=== PATIENT | female | born 1960 | race Caucasian/White ===

== ENCOUNTER → 2021-05-03 09:07 | Outpatient (BNVA) | payer MEDICAID, SELFPAY | PROVIDERS: PCP Internal Medicine Geriatric Medicine; Visit Provider Surgery Vascular Surgery ==

== ENCOUNTER 2021-05-08 09:59 | Outpatient (REF) | payer MEDICAID, SELFPAY ==
--- NOTE | ~2021-05-08 | US_ITS ---
EXAMINATION: NONINVASIVE ASSESSMENT OF THE ARTERIES OF BOTH LOWER EXTREMITIES WITH PVR EXAM AND BILATERAL LOWER EXTREMITY DUPLEX: CLINICAL INFORMATION: Claudication TECHNIQUE: Ankle pulse volume recordings, ankle pressure measurements and ankle brachial indices were obtained of the lower extremity arterial system bilaterally in addition to duplex Doppler techniques with wave form analysis and measurement of velocities in the common femoral, profunda femoral, superficial femoral, popliteal and tibial arteries. The study was performed only at rest. COMPARISON: None FINDINGS: a) AT REST: RIGHT LE. The right ankle-brachial index is: Inaudible/could not be obtained. 2. Right ankle pressure: Decreased 3. Right ankle PVR waveform: Dampened 4. Right direct duplex Doppler findings: There is evidence of atherosclerotic disease. The proximal and mid SFA is occluded. * Common femoral artery: 108 cm/s, Diastolic flow reversal: Yes * Superficial femoral artery distal): 108 cm/s, Diastolic flow reversal: No. Turbulent monophasic flow * Popliteal artery: 79 cm/s, Diastolic flow reversal: No. Turbulent monophasic flow. * Posterior tibial artery: 23 cm/s, Diastolic flow reversal: No. Turbulent monophasic flow. There is increased peak systolic velocity in the fundus measuring 397 cm/s. LEFT LE. The left ankle-brachial index is: Inaudible/could not be obtained. 2. Left ankle pressure: Decreased 3. Left ankle PVR waveform: Dampened 4. Left direct duplex Doppler findings: There is evidence of atherosclerotic disease. The proximal and mid SFA is occluded. * Common femoral artery: 80 cm/s, Diastolic flow reversal: No. Biphasic. * Superficial femoral artery ( distal): 22 cm/s, Diastolic flow reversal: No. Monophasic flow. * Popliteal artery: 55 cm/s, Diastolic flow reversal: No. Monophasic flow. * Posterior tibial artery: 33 cm/s, Diastolic flow reversal: No. Monophasic flow. There is increased peak systolic velocity in the profunda measuring 548 cm/s and turbulent monophasic flow. * US/US arterial duplex LE BI IMPRESSION: Right: Occluded right proximal and mid SFA. Reconstituted distal SFA. Patent posterior tibial and popliteal arteries with turbulent monophasic flow. ADEOLA could not be obtained. Increased peak systolic velocity in the PFA questionable for stenosis. Left: Occluded proximal and mid SFA. Reconstituted diseased distal SFA. Patent posterior tibial and popliteal arteries with monophasic flow. ADEOLA could not be obtained. Increased peak systolic velocity PFA questionable for stenosis.
== END 2021-05-08 10:00 | disposition home or self-care (01) ==
LOC: HO.US 09:59
PROVIDERS: Visit Provider Surgery Vascular Surgery
DX: I70.213 Atherosclerosis of native arteries of extremities with intermittent claudication, bilateral legs (principal); F17.200 Nicotine dependence, unspecified, uncomplicated; Z71.6 Tobacco abuse counseling
CPT/HCPCS: 93923; 93925; 99202

== ENCOUNTER → 2021-05-10 15:07 | Outpatient (BNVA) | payer MEDICAID, SELFPAY | PROVIDERS: Visit Provider Surgery Vascular Surgery | DX: I73.9 Peripheral vascular disease, unspecified (principal); F17.210 Nicotine dependence, cigarettes, uncomplicated | CPT/HCPCS: 99212 ==

== ENCOUNTER → 2021-05-16 07:28 | Day surgery (SDC) | payer MEDICAID, SELFPAY ==
--- NOTE | 2021-05-16 08:05 | PC.NURSE ---
Patient reported to per diem interpreter she drank full bottle of water around 0700, approx 8oz. Patient stated they told me I couldn't have any coffee but that water was okay . RN Antoinette Cervantes notified and told Dr Varela. Dr Varela to speak to patient at bedside.
[2021-05-16 08:06] VITALS: BMI 25.4
[2021-05-16 08:15] LABS: MANUAL DIFF FLAG NO
[2021-05-16 08:17] LABS: Basophils Percent Auto 0.4 % (0-2); Eosinophils Absolute Auto 0.1 X10*3/uL (0.0-0.4); Hemoglobin 12.6 g/dl (12.0-16.0); Imm Gran Abs Auto 0.04 X10*3/uL (0.00-0.03); Imm Gran Pct Auto 0.4 % (0.0-0.4); Lymphocytes Absolute Auto 3.3 X10*3/uL (1.2-4.9); Lymphocytes Percent Auto 34.1 % (20-40); Mean Corpuscular HGB Conc 32.3 g/dl (31.0-35.0); Mean Corpuscular Hemoglobin 28.4 pg (27.0-33.0); Monocytes Absolute Auto 0.6 X10*3/uL (0.1-1.2); Monocytes Percent Auto 5.7 % (2-11); Neutrophils Absolute Auto 5.6 X10*3/uL (2.0-8.3); Neutrophils Percent Auto 58.4 % (45-73); Platelet Count 265 X10*3/uL (160-400); Red Blood Count 4.43 X10*6/uL (4.20-5.50); Red Cell Distribution Width 13.6 % (11.0-16.0); White Blood Count 9.6 X10*3/uL (4.8-10.8)
[2021-05-16 08:40] LABS: Anion Gap 14 (12-20); Blood Urea Nitrogen 14 mg/dL (9-16); Calcium 9.2 mg/dL (8.4-10.2); Carbon Dioxide 23 mmol/L (22-29); Chloride 107 mmol/L (96-108); Creatinine Clr Calc Pharmacy 86.4; Estimated Glomerular Filt Rate > 60; Glucose Random 99 mg/dL (60-115); Potassium 3.7 mmol/L (3.3-5.1); Sodium 140 mmol/L (135-145)
[2021-05-16 08:53] LABS: INTERNATIONAL NORM RATIO 1.1 (0.9-1.1); Prothrombin Time 12.5 SEC (9.9-13.0)
[2021-05-16 08:56] LABS: Partial Thromboplastin Time 40.1 SEC (24.1-38.0)
--- NOTE | 2021-05-16 09:09 | PC.NURSE ---
Case cancelled by Dr Varela, patient informed at bedside with fat purification worker.
== END ==
PROVIDERS: Visit Provider Surgery Vascular Surgery
DX: I73.9 Peripheral vascular disease, unspecified (principal); Z53.8 Procedure and treatment not carried out for other reasons
CPT/HCPCS: 36415; 80048; 85025; 85610; 85730

== ENCOUNTER 2021-05-30 06:03 | Day surgery (SDC) | payer MEDICAID, SELFPAY ==
[2021-05-30] VITALS (10 sets, daily range): BP systolic 132–152; BP diastolic 49–83; PULSE 66–87; RESP 13–16; TEMP 36.1–36.6; O2SAT 96–99; BMI 25.4
[2021-05-30 06:42] LABS: MANUAL DIFF FLAG NO
[2021-05-30 06:45] LABS: Basophils Percent Auto 0.3 % (0-2); Eosinophils Absolute Auto 0.1 X10*3/uL (0.0-0.4); Eosinophils Percent Auto 0.9 % (0-4); Hematocrit 38.9 % (37-47); Hemoglobin 12.5 g/dl (12.0-16.0); Imm Gran Abs Auto 0.03 X10*3/uL (0.00-0.03); Imm Gran Pct Auto 0.3 % (0.0-0.4); Lymphocytes Absolute Auto 2.7 X10*3/uL (1.2-4.9); Lymphocytes Percent Auto 25.5 % (20-40); Mean Corpuscular HGB Conc 32.1 g/dl (31.0-35.0); Mean Corpuscular Hemoglobin 28.3 pg (27.0-33.0); Mean Corpuscular Volume 88.2 fL (80-98); Mean Platelet Volume 11.2 fL (9.4-12.3); Monocytes Absolute Auto 0.6 X10*3/uL (0.1-1.2); Monocytes Percent Auto 5.9 % (2-11); Neutrophils Absolute Auto 7.2 X10*3/uL (2.0-8.3); Neutrophils Percent Auto 67.1 % (45-73); Platelet Count 215 X10*3/uL (160-400); Red Blood Count 4.41 X10*6/uL (4.20-5.50); Red Cell Distribution Width 13.9 % (11.0-16.0); White Blood Count 10.7 X10*3/uL (4.8-10.8)
[2021-05-30 06:56] LABS: Prothrombin Time 11.6 SEC (9.9-13.0)
[2021-05-30 06:59] LABS: Partial Thromboplastin Time 31.2 SEC (24.1-38.0)
[2021-05-30 07:38] LABS: Anion Gap 17 (12-20); Blood Urea Nitrogen 12 mg/dL (9-16); Calcium 9.2 mg/dL (8.4-10.2); Carbon Dioxide 19 mmol/L (22-29); Chloride 108 mmol/L (96-108); Creatinine Clr Calc Pharmacy 83.6; Estimated Glomerular Filt Rate > 60; Glucose Random 92 mg/dL (60-115); Potassium 3.8 mmol/L (3.3-5.1); Sodium 140 mmol/L (135-145)
--- NOTE | 2021-05-30 08:55 | P.OP_ITS ---
Operative Note Operative Note Date of Service: 05/30/21 Narrative: Angiogram report from [facility] Preoperative diagnosis: Atherosclerosis of right lower extremity with activity limiting claudication Postoperative diagnosis: Same Procedure: 1. Ultrasound-guided leftcommon femoral access 2. Aortogram with bilateral lower extremity runoff Surgeon:Ernesto Varela M.D. Administration Professional:None Anesthesia: Local with moderate conscious sedation for a total of 28 minutes, performed by va Specimens:none Drains:none Estimated blood loss: Less than 10 ml Indications: 60-year-old female with a history of smoking who has severe activity limiting claudication. Upon ambulation of half a block she notes pain and the right lower extremity The patient has signed the informed consent after reviewing risks, complications, benefits, and alternatives previously discussed with the patient in my office. The patient was given the opportunity to ask any additional questions or voice any concerns. All questions were answered to the patient's satisfaction. Procedure in detail: Patient was brought to the angiography suite prior to which a time-out was called for patient identification and site verification. Bilateral groins were prepped and draped in the standard surgical fashion. Under ultrasound guidance left common femoral was punctured with micro puncture needle and wire. Subsequently a precision 4 Latvian sheath was then placed. [employer] wire was advanced to the level of the aorta. 4 Latvian Flush catheter was brought up and parked at the level of the renal arteries. Aortogram was then undertaken. Catheter was brought down to the level of the iliac bifurcation. Iliacs were subsequently imaged. Catheter was then brought in up and over to the right side common femoral. Runoff study was then undertaken. No intervention was indicated. Catheter was brought back to the left side and left lower extremity runoff was undertaken through the 4 Latvian sheath. At this point sheath was removed in 10 minutes of direct pressure was held. Patient tolerated the procedure well. Returned to recovery with stable vitals and no hematoma. Interpretation of films: 1. Ultrasound demonstrates appropriate femoral puncture. Image of which was saved. 2. Aortogram demonstrates appropriate caliber aorta. Minimal disease. Appropriate take-off of the renals. 3. Iliac images demonstrate normal caliber no significant stenosis 4. Right lower extremity demonstrated good flow through the common femoral which had significant calcific disease. Very prominent profunda femorals. Flush occlusion of SFA with reconstitution at the above knee popliteal. Three vessel runoff anterior tibial was tenuous. TP trunk had some mild stenosis. 5. Left lower extremity study was a mirror image. Good flow down through the common femoral into the profunda. Flush occlusion of SFA with reconstitution of the above knee popliteal. Three vessel runoff although the vessels were smaller in caliber. Conclusion: 1. Successful diagnostic angiogram. Patient will require fem-pop bypass above knee. Will discuss on follow-up in office. This note is constructed using voice recognition software. While every effort has been made to ensure accuracy, sql server architect errors may have been included. Thank you for allowing me to participate in the care of your patient. Yours sincerely, Ernesto Varela MD, FACS, R.P.V.I.
[2021-05-30] MEDS: iohexoL 300 MG/ML 100 ML INFUS..BTL IV (11:54)
[2021-05-30] MEDS: oxyCODONE HCl Immed Release 5 MG TABLET PO (11:55)
[2021-05-30] MEDS: Acetaminophen 325 MG TABLET 650 MG PO (11:55)
== END 2021-05-30 13:42 | disposition home or self-care (01) ==
PROVIDERS: Visit Provider Surgery Vascular Surgery
DX: I70.211 Atherosclerosis of native arteries of extremities with intermittent claudication, right leg (principal); M79.604 Pain in right leg; F39 Unspecified mood [affective] disorder; F19.20 Other psychoactive substance dependence, uncomplicated; F17.210 Nicotine dependence, cigarettes, uncomplicated
CPT/HCPCS: 36246; 36247; 36415; 75630; 76937; 80048; 85025; 85610; 85730; 99152; 99153; C1769; C1887; J2250; J3010; Q9967

== ENCOUNTER → 2021-06-05 15:40 | Outpatient (BNVA) | payer MEDICAID, SELFPAY | PROVIDERS: Visit Provider Surgery Vascular Surgery | DX: I73.9 Peripheral vascular disease, unspecified (principal) | CPT/HCPCS: 99212 ==

== ENCOUNTER → 2021-06-12 14:45 | Outpatient (BNVA) | payer MEDICAID, SELFPAY | PROVIDERS: PCP Internal Medicine Geriatric Medicine; Visit Provider Internal Medicine | DX: Z01.810 Encounter for preprocedural cardiovascular examination (principal); I73.9 Peripheral vascular disease, unspecified; I25.10 Atherosclerotic heart disease of native coronary artery without angina pectoris; F17.210 Nicotine dependence, cigarettes, uncomplicated; Z79.899 Other long term (current) drug therapy | CPT/HCPCS: 93005; 99202 ==

== ENCOUNTER → 2021-06-19 07:14 | Outpatient (REF) | payer MEDICAID, SELFPAY ==
--- NOTE | ~2021-06-19 | NM_ITS ---
Myocardial perfusion study Indication: Preoperative cardiovascular risk stratification Technique: The patient was brought in for a Lexiscan perfusion study on 06/19/2021. Patient performed low-level exercise and was injected 0.4 mg of Lexiscan intravenously. Within a minute of injection, 25 mCi of sestamibi was given intravenously. Images were obtained using the SPECT gamma camera interlaced with the gating device. Images were obtained in supine position. Resting perfusion study was performed on 06/20/2021. Patient was administered 25 mCi of sestamibi intravenously at rest. Images were then obtained in supine position. Images obtained with and without CT attenuation. Total DLP 83 mGy-cm. Images were processed with the software and compared side to side in short axis, horizontal long axis and vertical long axis views. Findings: The stress perfusion study showed nonattenuated images show moderately reduced uptake in the basal inferior wall of the LV myocardium. An abnormal perfused. Attenuation corrected images show moderately reduced uptake in the basal inferior wall of the LV myocardium is well.. The gated study shows normal LV systolic function with calculated LVEF of 58%. LV cavity is normal in size. The gated study shows reduced wall thickening and contraction of basal inferior segments. Resting study shows no change in perfusion pattern compared to stress perfusion study. Gating at rest reveals normal systolic wall motion with ejection fraction at greater than 60%. The findings are consistent with fixed basal inferior defect most suggestive nontransmural infarct. There is no reversible defect ischemia.. IN/IN cardiolite stress test Impression: 1. 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 Gated LVEF is 58% 3. Transient ischemic dilatation not present EKG is nondiagnostic for ischemia
--- NOTE | 2021-06-19 07:34 | CA_ITS ---
Transthoracic Echocardiogram Patient (Last, First, Middle): Elizabeth Mesa, Gender: Female Date of : 1960 Age: 61 Procedure Date: 06/19/2021 Procedure Type: Transthoracic Echocardiogram Location: OP Height: 157.48 cm Weight: 58.97 kg BSA: 1.59 m2 Heart Rate: bpm BP: 122 / 60 mmHg Dietary Assistant: COLLIN/ASAEL Referring MD: Kraig Templeton MD Symptoms: I25.10 - Atherosclerotic heart disease of [place] coronary... Study Quality: Good ECG Rhythm: Sinus Conclusions: - The left ventricular systolic function is low normal. The visually estimated ejection fraction is between 50-55%. - The inferoseptal wall and basal inferior segment are akinetic. - There is an interatrial septal aneurysm seen bowing to the right. - No obvious valvular pathology seen on this study. Findings Left Ventricle Normal left ventricular cavity size. There is normal left ventricular wall thickness. The left ventricular systolic function is low normal. The visually estimated ejection fraction is between 50-55%. E/E prime ratio is between 8 and 15 consistent with indeterminate filling pressures. Evidence suggests grade I (mild) diastolic dysfunction. Wall Motion Rest Echo Findings The inferoseptal wall and basal inferior segment are akinetic. Right Ventricle Normal right ventricular cavity size and systolic function. Atria Both atria are normal in size. There is an interatrial septal aneurysm seen bowing to the right. Interatrial shunt cannot be excluded. Aortic Valve There is a normal trileaflet aortic valve. There is no aortic valve stenosis. There is no aortic valve regurgitation. Mitral Valve The mitral valve appears normal. There is trace mitral valve regurgitation. There is no mitral valve stenosis. Pulmonic Valve The pulmonic valve was not well visualized. Tricuspid Valve Normal tricuspid valve structure. There is no tricuspid valve regurgitation. The pulmonary artery systolic pressure is normal. Great Vessels The aortic annulus, sinuses of valsalva, and asc aorta are normal in size. Venous The inferior vena cava is normal in size and collapses greater than 50% with inspiration. Pericardium/Pleural There is no evidence of pericardial effusion. Prior Study Comparison No prior study available for comparison. Recommendations, Care & Conclusions No obvious valvular pathology seen on this study. Measurements 2D Linear Measurements IVSd: 0.83 0.6-0.9/0.6-1.0 cm LVIDd: 4.84 3.9-5.3/4.2-5.9 cm LVIDd Index: 3.04 2.4-3.2/2.2-3.1 cm/m2 LVIDs: 3.28 2.0-3.6 cm LVPWd: 0.92 0.7-1.1 cm Ao Root: 3.00 2.1-3.5 cm LA Diam: 3.80 2.7-3.8/3.0-4.0 cm LAIDs Index: 2.39 1.5-2.3 cm/m2 LV Mass: 180.40 67-162/88-224 g LV Mass Index: 113.46 43-95/49-115 g/m2 LVOT Diam: 2.10 3.0+(-)1.3 cm Mitral Valve MV Pk E: 0.91 MV PK A: 0.97 MV Decel Time: 90.00 E/A: 0.90 E'Lateral: 7.94 E'Medial: 4.68 E/E' Med: 19.40 E/E' Lat: 11.40 PHT: 26.00 MVA PHT: 8.46 Decel [place]: 10.05 Aortic Valve AoV Pk Neri: 1.19 AoV Mn Neri: 0.82 AoV VTI: 0.25 AoV Pk Grad: 6.00 Aov Mn Grad: 3.00 KYRA Cont.VTI: 3.07 LVOT LVOT Pk Neri: 1.00 LVOT Mn Neri: 0.66 LVOT VTI: 0.22 LVOT Pk Grad: 4.00 LVOT Mn Grad: 2.00 LVOT Diam: 2.10 LVOT Area: 3.46 Diastolic Function MV Pk E: 0.91 MV Pk A: 0.97 E/A: 0.90 E'Medial: 4.68 E/E' Med: 19.40 E' Laterial: 7.94 E/E' Lat: 11.40 Right Ventricle TAPSE (mm): 24.00 TVS' Neri: 12.00 Great Vessels Aorta Ao Root-2D: 3.00 2.0-3.7 cm Ao Asc: 3.10 2.1-3.4 cm Updated in Other Vendor System with Status of Final Kraig Templeton MD electronically signed on 06/19/2021 12:14:33 PM with status of Final
--- NOTE | 2021-06-19 10:29 | CA_ITS ---
Acquisition Time: 2021-06-19 08:52:09 Total Exercise Time: 00:02:00 Test Indications: Z01.810 - Encounter for preproc Medications: Protocol: LEXISCAN Max HR: 120 BPM 74% of Pred: 161 BPM Max BP: 124/080 mmHG Max Work Load: 1.0 METS Pharmacological stress test with Lexiscan njection while sitting and kicking her legs, without anginal symptoms, without arrythmia, with normotensive response to injection, with nondiagnostic EKG for ischemia. In recovery there were asymptomatic mildly dowsloping STs in V4-V6, which were different from baseline, that was treated with Aminophylline 75mg IVP to reverse Lexiscan with improvement. Nuclear images pending. Test reviewed with Dr Templeton. Referred By: Kraig Templeton Overread By: ISAIAH SANZ
== END ==
LOC: HO.CARD 07:14
PROVIDERS: Visit Provider Internal Medicine
DX: Z01.810 Encounter for preprocedural cardiovascular examination (principal); I25.10 Atherosclerotic heart disease of native coronary artery without angina pectoris
CPT/HCPCS: 78452; 93017; 93306; A9500; J0280; J2785

== ENCOUNTER → 2021-06-21 14:48 | Outpatient (BNVA) | payer MEDICAID, SELFPAY | PROVIDERS: Visit Provider Internal Medicine ==

== ENCOUNTER 2021-06-25 06:20 | Inpatient (IN) | payer MEDICAID, SELFPAY ==
--- NOTE | 2021-06-22 11:51 | P.CONAN_ITS ---
Documented by User: Martha Patel NP 06/22/21 12:45 HPI - Anesthesia Eval Consult details Narrative: 61yo F for Femoral Popliteal Bypass Graft Smoker ? substance abuse PMF Active Problems Active Problems: All Active Problems (Updated 06/21/21 @ 15:06 by Kraig biswas MD) Atherosclerotic cardiovascular disease (Acute) Smoking (Acute) Preoperative cardiovascular examination (Acute) PAD (peripheral artery disease) (Acute) Past Medical History Medical History (Updated 06/22/21 @ 12:35 by Chandrika Carpenter, RN) Asthma Atherosclerotic cardiovascular disease Claudication Mood disorder PAD (peripheral artery disease) Smoker Substance dependence Family History Family History Father Unknown family medical history Mother Unknown family medical history Family history of problems with anesthesia: No Surgical History Surgical History (Updated 06/22/21 @ 12:14 by Chandrika Carpenter RN) Hx of section No pertinent past surgical history History of Problems with Anesthesia: No Social History Social History Are you a primary customer care voice consultant to a significant other at home: No Do you presently have visiting nurse or other home services: No Patient Tobacco Use Status: Current everyday Tobacco user Tobacco use type: Cigarette Cigarette Packs Per Day: 0.35 Cigarettes Per Day: 7.0 Years Smoked: 38 Smoked in Last 30 Days: Yes Patient Interested in Nicotine Replacement: Yes Patient Given Instructions on How to Stop Smoking: Yes Date Education Initiated: 06/22/21 Second Hand Smoke Exposure: Yes Use of substances other than those prescribed or required for medical reasons: No Have you been hit, kicked, punched, or otherwise hurt by someone within the past year? If so, by whom?: No Are you DNR?: No Advance Directives: No Advance Directives Information Provided: No Advance Directives on File: No Recently lost weight without trying: No Eating poorly because of decreased appetite: No Nutrition Risks: No Nutritional Risk Patient : No : No Narrative Narrative: No recent illness. No CP/SOB. Activity limited by PAD Meds Allergies Allergy/AdvReac Type Severity Reaction Status Date / Time aspirin [ASPIRIN] Allergy Unknown Gastrointestinal Verified 06/22/21 12:15 Upset Home Medications Medication Instructions Recorded Confirmed Last Taken Type atorvastatin 20 mg tablet 20 mg PO DAILY 05/03/21 06/22/21 Unknown History blood pressure monitor (Blood #1 ea 05/03/21 06/21/21 Unknown History Pressure Kit) cyclobenzaprine 10 mg tablet 10 mg PO TID 05/03/21 06/22/21 Unknown History inhalational spacing device #1 ea 05/03/21 06/21/21 Unknown History (Aerochamber Mini) mirtazapine 7.5 mg tablet 7.5 mg PO BEDTIME 05/03/21 06/22/21 Unknown History nabumetone 750 mg tablet 750 mg PO BID 05/03/21 06/22/21 Unknown History Exam Exam Date and Time: June 22, 2021 1151 Pertinent Lab Results Pertinent Lab Results: Laboratory Tests 05/30/21 05/30/21 06:38 06:38 WBC 10.7 Hgb 12.5 Hct 38.9 Plt Count 215 Sodium 140 Potassium 3.8 Chloride 108 Carbon Dioxide 19 L BUN 12 Creatinine 0.64 Narrative Narrative: EKG 05/2021 sinus rhythm at 87/Min; old inferior infarct; cannot exclude old lateral infarct Echocardiogram with low normal LVEF, 50-55%; inferoseptal and basal inferior akinesis suggesting prior infarction.? There was also interatrial septal aneurysm.? Myocardial perfusion imaging study shows a nontransmural infarct of the basal inferior wall, but no ischemia.? Airway Mallampati Class: II TM Dist: >3cm Neck ROM: Full Adult Head Mouth w/Numbe Teeth: 1. Loose Loose/Missing/Broken Teeth: Yes Heart: RRR Lungs: CTAB Assessment and Plan Assessment Anesthesia Assessment: Anesthesia Plan Discussed, Smoking Cess. Discussed and PAT Visit Final Anesthetic Review Family History of Problems with Anesthesia: No History of Problems with Anesthesia: No Documented by User: Alee Costello MD 06/25/21 07:02 [facility] Past Medical History Medical History (Updated 06/22/21 @ 12:35 by Chandrika Carpenter RN) Asthma Atherosclerotic cardiovascular disease Claudication Mood disorder PAD (peripheral artery disease) Smoker Substance dependence Family History Family History Father Unknown family medical history Mother Unknown family medical history Surgical History Surgical History (Updated 06/22/21 @ 12:14 by Chandrika Carpenter RN) Hx of section No pertinent past surgical history Social History Social History Are you a primary customer care voice consultant to a significant other at home: No Do you presently have visiting nurse or other home services: No Patient Tobacco Use Status: Current everyday Tobacco user Tobacco use type: Cigarette Cigarette Packs Per Day: 0.35 Cigarettes Per Day: 7.0 Years Smoked: 38 Smoked in Last 30 Days: Yes Patient Interested in Nicotine Replacement: Yes Patient Given Instructions on How to Stop Smoking: Yes Date Education Initiated: 06/22/21 Second Hand Smoke Exposure: Yes Use of substances other than those prescribed or required for medical reasons: No Have you been hit, kicked, punched, or otherwise hurt by someone within the past year? If so, by whom?: No Are you DNR?: No Advance Directives: No Advance Directives Information Provided: No Advance Directives on File: No Recently lost weight without trying: No Eating poorly because of decreased appetite: No Nutrition Risks: No Nutritional Risk Patient : No : No Meds Allergies Allergy/AdvReac Type Severity Reaction Status Date / Time aspirin [ASPIRIN] Allergy Unknown Gastrointestinal Verified 06/22/21 12:15 Upset Home Medications Medication Instructions Recorded Confirmed Last Taken Type atorvastatin 20 mg tablet 20 mg PO DAILY 05/03/21 06/22/21 Unknown History blood pressure monitor (Blood #1 ea 05/03/21 06/21/21 Unknown History Pressure Kit) cyclobenzaprine 10 mg tablet 10 mg PO TID 05/03/21 06/22/21 Unknown History inhalational spacing device #1 ramiro 05/03/21 06/21/21 Unknown History (Aerochamber Mini) mirtazapine 7.5 mg tablet 7.5 mg PO BEDTIME 05/03/21 06/22/21 Unknown History nabumetone 750 mg tablet 750 mg PO BID 05/03/21 06/22/21 Unknown History Exam Airway Mallampati Class: II (Edentuous on top) Adult Head Mouth w/Numbe Teeth: 1. Loose Assessment and Plan Final Anesthetic Review NPO: Yes ASA Class: III Final Preanesthetic Review: No Changes in Pt Med Stat, Meds/Allgs Chart Reviewed and Consent Obtained/Reviewed Patient Risk: Intermediate Procedure Risk: Intermediate Anesthetic Plan Anesthetic Plan: GA Disposition: Standard PACU
[2021-06-22 12:17] VITALS: BMI 25.0
[2021-06-22 12:26] VITALS: BP 146/80; PULSE 91; RESP 20
[2021-06-22 14:27] LABS: Hematocrit 39.6 % (37-47); Hemoglobin 12.7 g/dl (12.0-16.0); Mean Corpuscular HGB Conc 32.1 g/dl (31.0-35.0); Mean Corpuscular Hemoglobin 28.2 pg (27.0-33.0); Mean Corpuscular Volume 87.8 fL (80-98); Platelet Count 234 X10*3/uL (160-400); Red Blood Count 4.51 X10*6/uL (4.20-5.50); Red Cell Distribution Width 13.8 % (11.0-16.0); White Blood Count 7.4 X10*3/uL (4.8-10.8)
[2021-06-22 14:31] LABS: Prothrombin Time 11.7 SEC (9.9-13.0)
[2021-06-22 14:34] LABS: Partial Thromboplastin Time 37.9 SEC (24.1-38.0)
[2021-06-22 14:53] LABS: Anion Gap 16 (12-20); Blood Urea Nitrogen 13 mg/dL (9-16); Calcium 9.7 mg/dL (8.4-10.2); Carbon Dioxide 25 mmol/L (22-29); Chloride 107 mmol/L (96-108); Creatinine Clr Calc Pharmacy 84.7; Estimated Glomerular Filt Rate > 60; Glucose Random 90 mg/dL (60-115); Sodium 143 mmol/L (135-145)
[2021-06-25] VITALS (20 sets, daily range): BP systolic 106–136; BP diastolic 56–76; PULSE 70–104; RESP 14–20; TEMP 36.1–36.8; O2SAT 97–100
[2021-06-25 06:59] LABS: COVID-19 Test Negative (Negative)
[2021-06-25] MEDS: Lactated Ringers 1,000 ML 50 ML IVCONT (07:15)
--- NOTE | 2021-06-25 08:01 | MHC.SHP ---
Pre-Procedural Eval Section A Date of Service: 06/25/21 The patient is an INPATIENT: No The History & Physical has been completed within 30 days and I have reviewed it.: Yes Section B Chief Complaint: Post op Allergies: Allergies Allergy/AdvReac Type Severity Reaction Status Date / Time aspirin [ASPIRIN] Allergy Unknown Gastrointestinal Verified 06/22/21 12:15 Upset Plan I have reviewed the history and physical and performed a pertinent physical examination on my patient. No changes have occurred unless specified.
--- NOTE | 2021-06-25 10:49 | W.PM.OPN ---
Operative Note Operative Note Date of Service: 06/25/21 Narrative: Operative note by [facility] Preoperative diagnosis: Atheroscleroses with a right lower extremity rest pain Postoperative diagnosis: Same Procedure:1. Right femoral to popliteal bypass 2. Femoral endarterectomy 3. Remote endarterectomy of profundus femoris Surgeon:Ernesto Varela M.D. Aerospace Technician: Dr. Gomez Anesthesia: General Specimens: 1 Drains: 0 Estimated blood loss: 150 mL Indications: 61-year-old smoker with right lower extremity rest pain had a preprocedure angiogram. Demonstrated total occlusion of SFA. Now presents for right side femoral to popliteal bypass. patient has signed the informed consent after reviewing risks, complications, benefits, and alternatives previously discussed with the patient in my office with her son at bedside in the office The patient was given the opportunity to ask any additional questions or voice any concerns. All questions were answered to the patient's satisfaction. Side Hemmer was present Procedure in detail: Patient was brought to the operating room prior to which a time-out was called for patient identification and site verification right lower extremity was prepped and draped in standard surgical fashion. Incision was carried out in a longitudinal manner over the common femoral artery. We were easily able to dissect out the common femoral artery and dissected up to the inguinal canal. This was isolated with a silastic loop. In a similar fashion we were able to isolate out the profundus and SFA. We created a 2nd incision just above the patella on the medial aspect of the thigh. We were able to dissect out to the 2 muscle heads and with Doppler guidance we were easily able to find the popliteal artery. In a similar manner this was isolated out with silastic loops as well. Once this was accomplished we passed a aortic clamp and use that as a tunneler and passed a umbilical tape through that tunnel. From the femoral incision to the above knee popliteal incision. At this time 5000 units of systemic heparin was administered. After 5 minutes of circulation time we turned our attention to the distal anastomosis 1st we created an arteriotomy after isolating the popliteal artery. This was widened with Govea scissor. We then circumferentially anastomosed the graft which was a Moberly Propaten 6 mm x 50 cm graft a CV6 Moberly suture. Once this was accomplished we flushed through the graft. We then tunnel the graft to the femoral site. The then trimmed the graft down to the appropriate size. Once this was accomplished we then created an arteriotomy on the common femoral all the way down to overlying the profundus femorals. There was a significant amount of atherosclerotic plaque that had to be removed in order to get a clear channel event to the profundus femorals. We performed a common femoral endarterectomy going down on to the SFA. In addition we had to perform remote endarterectomy of the profundus femorals. Once all this plaque material was removed clear surface was achieved. It was our irrigated out thoroughly. We then anastomosed the graft in a circumferential manner once again with a [place]oberly CV6 suture. We flushed prior to closure. Once this was accomplished there was several sites that had to be individually sutured to obtain hemostasis with a Prolene 6 0. Once this was accomplished adequate hemostasis was achieved. Tisseel sealant was placed. Deep layer was reapproximated using 2 0 Polysorb superficial layer with 3-0 poly Sorb finally skin was closed with skin clips. At the end of the case sponge instrument counts were correct. Patient tolerated the procedure well. Returned to recovery with stable vitals and a palpable dorsalis pedis pulse. This note is constructed using voice recognition software. While every effort has been made to ensure accuracy, executive director global brand marketing errors may have been included. Thank you for allowing me to participate in the care of your patient. Yours sincerely, Ernesto Varela MD, FACS, R.P.V.I.
--- NOTE | 2021-06-25 14:24 | PC.NURSE ---
Addendum entered by Hernando Bee RN 06/25/21 15:39: MD TRAVIS notified and checked out hematoma. No new orders at this time. Original Note: Pt arrived to unit 1400 denies pain. Foam dressings in place right groin femoral entry with scant sanguineous drainage marked, bruise noted distal with hematoma formation pulses palp, denies pain, leg temp normal. Medial foam inner right superior knee dry intact. aware hematoma MARIA DOLORES. VSS.
--- NOTE | 2021-06-25 14:40 | P.HPCC_ITS ---
History of Present Illness Date of Service: 06/25/21 Chief Complaint: Status post fem-pop bypass 61-year-old lady with underlying history of peripheral artery disease symptomatic with leg claudication postop day 0 after elective right fem-pop bypass being monitored in the intensive care unit. Review of Systems Constitutional: Constitutional: Denies daytime sleepiness, Denies excessive sweating, Denies fatigue, Denies fever(s), Denies lethargy, Denies malaise, Denies night sweats, Denies snoring and Denies weight loss Eyes: Eyes: Denies blurry vision and Denies itchy eyes ENT: Denies nasal congestion, Denies post nasal drip, Denies sinus pain, Denies sinus pressure and Denies other ( Thrush) Cardiovascular: Cardiovascular: Denies chest pain, Denies pedal edema, Denies dyspnea, Denies orthopnea and Denies paroxysmal nocturnal dyspnea Respiratory: Respiratory: Denies cough, Denies hemoptysis, Denies excessive phlegm production, Denies dyspnea, Denies snoring and Denies wheezing Gastrointestinal: Gastrointestinal: Denies abdominal pain and Denies heartburn Musculoskeletal: Musculoskeletal: Denies myalgias, Denies arthralgias, Denies joint swelling and Reports other (Positive for bilateral leg pain) Integumentary/Breasts: Skin/Breast: Denies rash Neurologic: Denies memory loss and Denies seizure-like activity Psychiatric: Psychiatric: Denies abnormal sleep pattern, Denies anxiety and Denies memory loss Endocrine: Endocrine: Denies excessive sweating, Denies fatigue and Denies heat intolerance Hematologic/Lymphatic: Hematologic/Lymphatic: Denies easy bruising Allergic/Immunologic: Allergic/Immunologic: Denies itchy eyes, Denies seasonal rhinorrhea and Denies wheezing PMFSH Past Medical History Medical History (Updated 06/25/21 @ 14:45 by Baron Tristan MD) Asthma Atherosclerotic cardiovascular disease Claudication Mood disorder PAD (peripheral artery disease) Smoker Substance dependence Family History Family History Father Unknown family medical history Mother Unknown family medical history Surgical History Surgical History (Updated 06/22/21 @ 12:14 by Chandrika Carpenter RN) Hx of section No pertinent past surgical history Social History Social History Are you a primary nanny caregiver to a significant other at home: No Do you presently have visiting nurse or other home services: No Patient Tobacco Use Status: Current everyday Tobacco user Tobacco use type: Cigarette Cigarette Packs Per Day: 0.35 Cigarettes Per Day: 7.0 Years Smoked: 38 Second Hand Smoke Exposure: Yes Meds Allergies Allergy/AdvReac Type Severity Reaction Status Date / Time aspirin [ASPIRIN] Allergy Unknown Gastrointestinal Verified 06/22/21 12:15 Upset Active Medications: Current Medications Generic Name Dose Route Start Last Admin Trade Name Freq PRN Reason Stop Dose Admin Acetaminophen 650 mg 06/25/21 10:46 Acetaminophen 325 Mg Tablet PO Q6H PRN Pain, Mild (Pain Scale 1-3) Atorvastatin Calcium 20 mg 06/26/21 09:00 Atorvastatin Calcium 20 Mg Tablet PO DAILY [facility] Cyclobenzaprine HCl 10 mg 06/25/21 15:00 Cyclobenzaprine Hcl 10 Mg Tablet PO TID [facility] Lactated Ringer's 1,000 mls @ 150 mls/hr 06/25/21 14:45 Lr IVCONT .Q6H40M [facility] Mirtazapine 7.5 mg 06/25/21 21:00 Mirtazapine 7.5 Mg Tablet PO BEDTIME [facility] Morphine Sulfate 2 mg 06/25/21 10:46 Morphine Sulfate 2 Mg/Ml Cartridge IVPUSH Q4H PRN Pain, Severe (Pain Scale 7-10) Protocol Oxycodone HCl 5 mg 06/25/21 10:46 Oxycodone Hcl Immed Release 5 Mg Tablet PO Q4H PRN Pain, Moderate (Pain Scale 4-6 Sodium Chloride 3 ml 06/25/21 16:00 0.9 % Sodium Chloride Flush 3 Ml Syringe IVFLUSH QSHIFT [facility] Home Medications Medication Instructions Recorded Confirmed Last Taken Type atorvastatin 20 mg tablet 20 mg PO DAILY 05/03/21 06/22/21 Unknown History blood pressure monitor (Blood #1 ea 05/03/21 06/21/21 Unknown History Pressure Kit) cyclobenzaprine 10 mg tablet 10 mg PO TID 05/03/21 06/22/21 Unknown History inhalational spacing device #1 ea 05/03/21 06/21/21 Unknown History (Aerochamber Mini) mirtazapine 7.5 mg tablet 7.5 mg PO BEDTIME 05/03/21 06/22/21 Unknown History nabumetone 750 mg tablet 750 mg PO BID 05/03/21 06/22/21 Unknown History Physical Exam Vital Signs: Vital Signs: Last Vital Signs Temp 97.8 F 06/25/21 14:00 Pulse 76 06/25/21 14:00 Resp 20 06/25/21 14:00 BP 114/68 06/25/21 14:00 Pulse Ox 98 06/25/21 14:00 Body Mass Index 25.0 Const: General: no acute distress, alert and awake Eyes: Sclerae: sclerae normal EOM: EOMs intact bilaterally Neck: Neck: Yes no lymphadenopathy, Yes trachea midline and Yes supple Resp: Effort & Inspection: normal respiratory effort and no respiratory distress Auscultation: clear to auscultation bilaterally Cardio: Rate: regular rate Rhythm: regular rhythm Heart sounds: no leal ps, no murmurs and no rubs GI: Palpation (GI): Soft to palpation and Other GI palpation findings present ( Nontender) Auscultation: normal bowel sounds Extrem: General: Yes no pedal edema, No clubbing, No cyanosis and Yes other (Right femoral surgical site with dressing and small hematoma just distal ) Results Labs CBC and Chem 7: 06/22/21 13:10 06/22/21 13:10 Labs: Laboratory Results - last 24 hr 06/25/21 06:27 COVID-19 ([facility]) Negative COVID-19 Clin Com See Note Assessment and Plan (1) PAD (peripheral artery disease): Status: Acute Assessment: 61-year-old lady with underlying history of morbid disorder and peripheral arterial disease now postop day 0 after an elective right fem-pop bypass being monitored in the intensive care unit Plan: Neuro: No acute issues. Cardiovascular: Postop day 0 after right fem-pop bypass for symptomatic peripheral artery disease. Vascular surgery service care appreciated. Maintain systolic blood pressure under 160. Pulmonary: No acute issues. Renal: No acute issues. Endo: No acute issues. GI: No acute issues. ID: No acute issues Heme/Onc: No acute issues. Psych: Underlying history mood disorder, continue mirtazapine. Miscellaneous: No acute issues. Prophylaxis: Per vascular surgery Diet: Regular (2) Atherosclerotic cardiovascular disease: Status: Acute (3) Mood disorder: Status: Acute (4) Substance dependence: Status: Acute
[2021-06-25] MEDS: ceFAZolin Sodium/Dextrose,Iso 2 GM/50 ML PIGGYBACK IV (14:51)
[2021-06-25] MEDS: Lactated Ringers 1,000 ML 150 ML IVCONT ×2 (14:53→22:12)
[2021-06-25] MEDS: Cyclobenzaprine HCl 10 MG TABLET PO ×2 (14:56→20:53)
[2021-06-25] MEDS: oxyCODONE HCl Immed Release 5 MG TABLET PO ×2 (16:14→20:54)
[2021-06-25 16:15] LABS: MANUAL DIFF FLAG NO
[2021-06-25 16:41] LABS: Basophils Percent Auto 0.1 % (0-2); Hemoglobin 12.4 g/dl (12.0-16.0); Imm Gran Abs Auto 0.07 X10*3/uL (0.00-0.03); Imm Gran Pct Auto 0.7 % (0.0-0.4); Lymphocytes Absolute Auto 0.9 X10*3/uL (1.2-4.9); Lymphocytes Percent Auto 9.5 % (20-40); Mean Corpuscular HGB Conc 33.5 g/dl (31.0-35.0); Mean Corpuscular Hemoglobin 28.2 pg (27.0-33.0); Mean Corpuscular Volume 84.1 fL (80-98); Mean Platelet Volume 12.9 fL (9.4-12.3); Monocytes Absolute Auto 0.2 X10*3/uL (0.1-1.2); Monocytes Percent Auto 1.9 % (2-11); Neutrophils Absolute Auto 8.6 X10*3/uL (2.0-8.3); Neutrophils Percent Auto 87.8 % (45-73); Platelet Count 181 X10*3/uL (160-400); Red Cell Distribution Width 13.6 % (11.0-16.0); White Blood Count 9.8 X10*3/uL (4.8-10.8)
[2021-06-25] MEDS: Mirtazapine 7.5 MG TABLET PO (20:54)
[2021-06-25] MEDS: Morphine Sulfate 2 MG/ML CARTRIDGE IVPUSH (23:36)
[2021-06-26] VITALS (7 sets, daily range): BP systolic 109–131; BP diastolic 54–75; PULSE 71–91; RESP 18–20; TEMP 36–37.1; O2SAT 95–99; BMI 27.9
[2021-06-26] MEDS: Lactated Ringers 1,000 ML 150 ML IVCONT (04:55)
[2021-06-26] MEDS: oxyCODONE HCl Immed Release 5 MG TABLET PO ×3 (05:02→23:24)
[2021-06-26 07:00] LABS: MANUAL DIFF FLAG NO
[2021-06-26 07:08] LABS: Basophils Percent Auto 0.1 % (0-2); Hematocrit 31.2 % (37-47); Hemoglobin 10.1 g/dl (12.0-16.0); Imm Gran Abs Auto 0.05 X10*3/uL (0.00-0.03); Imm Gran Pct Auto 0.5 % (0.0-0.4); Lymphocytes Percent Auto 18.6 % (20-40); Mean Corpuscular HGB Conc 32.4 g/dl (31.0-35.0); Mean Corpuscular Volume 86.4 fL (80-98); Mean Platelet Volume 12.1 fL (9.4-12.3); Monocytes Percent Auto 9.1 % (2-11); Neutrophils Absolute Auto 7.6 X10*3/uL (2.0-8.3); Neutrophils Percent Auto 71.7 % (45-73); Platelet Count 170 X10*3/uL (160-400); Red Blood Count 3.61 X10*6/uL (4.20-5.50); Red Cell Distribution Width 13.9 % (11.0-16.0); White Blood Count 10.6 X10*3/uL (4.8-10.8)
[2021-06-26 07:58] LABS: Anion Gap 11 (12-20); Blood Urea Nitrogen 10 mg/dL (9-16); Calcium 8.7 mg/dL (8.4-10.2); Carbon Dioxide 27 mmol/L (22-29); Chloride 107 mmol/L (96-108); Creatinine Clr Calc Pharmacy 92.1; Estimated Glomerular Filt Rate > 60; Glucose Random 138 mg/dL (60-115); Potassium 4.5 mmol/L (3.3-5.1); Sodium 140 mmol/L (135-145)
--- NOTE | 2021-06-26 08:47 | HO.VASCPN ---
Subjective Subjective Date of Service: 06/26/21 Patient reports: no new complaints, feels better and pain is less Interval history: 61-year-old female postop day 1 status post fem-pop bypass. Doing well overnight. Transferred from ICU to floor due to bed situation. Pain reasonably well controlled. No issues overnight. Physical Exam Vital Signs: Vital Signs: Last Vital Signs Temp 98.2 F 06/26/21 05:06 Pulse 71 06/26/21 05:06 Resp 18 06/26/21 05:06 BP 111/60 06/26/21 05:06 Pulse Ox 98 06/26/21 05:06 Body Mass Index 27.9 Const: General: cooperative, healthy appearing and no acute distress Orientation/consciousness: oriented to person, oriented to place and oriented to time HENMT: Head: Yes normal to inspection Neck: Carotids: no bruits Chest: Chest palpation & inspection: normal inspection of the chest Resp: Effort & Inspection: normal respiratory effort and able to speak in complete sentences Auscultation: clear to auscultation bilaterally Cardio: Rate: regular rate Heart sounds: S1 normal heart sound present and S2 normal heart sound present Peripheral pulses: dorsalis pedis present (Right side triphasic signal) GI: Inspection: Yes normal to inspection Skin: Other: Small right groin hematoma General skin exam: no rashes or lesions noted Wounds: no wounds Neuro: General: oriented to person, oriented to place, oriented to time and CN's II-XI intact bilaterally Extrem: General: Yes normal to inspection, Yes full ROM and Yes no clubbing, cyanosis or edema Psych: Appearance: grossly normal and well kempt Speech and movement: Normal speech and movement present Affect: normal affect Progress Note: A&P Assessment and plan (1) PAD (peripheral artery disease): Status: Acute Assessment and Plan: Doing well postop day 1. Will DC Riley. Continue bedrest for today. Will start ambulation and physical therapy tomorrow if stable. Will check CBC again tomorrow. Consult Medicine from medical management. Fall Risk Details Current Medications: Current Medications Generic Name Dose Route Start Last Admin Trade Name Freq PRN Reason Stop Dose Admin Acetaminophen 650 mg 06/25/21 10:46 Acetaminophen 325 Mg Tablet PO Q6H PRN Pain, Mild (Pain Scale 1-3) Atorvastatin Calcium 20 mg 06/26/21 21:00 Atorvastatin Calcium 20 Mg Tablet PO BEDTIME [facility] Cyclobenzaprine HCl 10 mg 06/25/21 15:00 06/25/21 20:53 Cyclobenzaprine Hcl 10 Mg Tablet PO 10 mg TID [facility] Administration Lactated Ringer's 1,000 mls @ 100 mls/hr 06/25/21 14:45 06/26/21 04:55 Lr IVCONT 150 mls/hr .Q10H [facility] Administration Mirtazapine 7.5 mg 06/25/21 21:00 06/25/21 20:54 Mirtazapine 7.5 Mg Tablet PO 7.5 mg BEDTIME [facility] Administration Morphine Sulfate 2 mg 06/25/21 10:46 06/25/21 23:36 Morphine Sulfate 2 Mg/Ml Cartridge IVPUSH 2 mg Q4H PRN Administration Pain, Severe (Pain Scale 7-10) Protocol Oxycodone HCl 5 mg 06/25/21 10:46 06/26/21 05:02 Oxycodone Hcl Immed Release 5 Mg Tablet PO 5 mg Q4H PRN Administration Pain, Moderate (Pain Scale 4-6 Sodium Chloride 3 ml 06/25/21 16:00 06/25/21 23:30 0.9 % Sodium Chloride Flush 3 Ml Syringe IVFLUSH Not Given QSHIFT [facility] Time Spent With Patient Time: Total time spent is greater than 50% in coordination of care (as documented) at patient's floor/unit and/or counseling patient: Time with patient: 25 - 35 minutes No Severe Sepsis: No Severe Sepsis Procedures Date of Service Date of Service: 06/26/21 Quality Stroke Does the patient have a stroke diagnosis?: No VTE Prior VTE?: No VTE Risk Level:: Surgical - moderate VTE Device Contraindication: N/A - Device Ordered VTE Drug Contraindication: N/A - Med Ordered
[2021-06-26] MEDS: Cyclobenzaprine HCl 10 MG TABLET PO ×3 (09:25→20:09)
[2021-06-26] MEDS: Heparin Sodium,Porcine 5,000 UNIT/ML VIAL 5000 UNIT SUBCUT ×2 (09:26→17:03)
--- NOTE | 2021-06-26 10:09 | PC.NURSE ---
Patient's cordova removed at 0930, patient tolerated procedure well, patient was advised of the bedrest order and need of bedpan use. 550ml of yellow urine drained
--- NOTE | 2021-06-26 10:37 | MHC.CM.PN ---
CM MET WITH PT WITH THE ASSISTANCE OF [facility]. PT REPORTS SHE LIVES AT HOME WITH HER SON WHO PROVIDES ASSISTANCE TO HER PRN. PT DENIES HAVING ANY IN HOME SERVICES BUT SAYS SHE IS WORKING ON GETTING [employer] HOURS FOR HER SON. PT REPORTS SHE GOES TO [facility] FOR PRIMARY CARE BUT DOES NOT KNOW THE PROVIDERS NAME. PT COMPLETED A HCP TODAY NAMING HER SON, BARON AND DAUGHTER, SUMAYA, HER PRIMARY AND ALTERNATE AGENTS RESPECTIVELY. CURRENT DC PLAN IS HOME WITH RESUMPTION OF FAMILY CARE FAMILY TO TRANSPORT
[2021-06-26 10:47] LABS: Glucose, Whole Blood 149 mg/dL (60-115)
--- NOTE | 2021-06-26 12:26 | PC.NURSE ---
Skin assessment completed today. Patient has a right groin surgical incision. Small hematoma below incision. Scant serosanguineous staining on dressing. No other skin issues noted at this time.
[2021-06-26] MEDS: Acetaminophen 325 MG TABLET 650 MG PO (12:37)
--- NOTE | 2021-06-26 13:35 | HO.POSTANES ---
Post Anesthesia Evaluation Post Anesthesia Evaluation Vital Signs: Vital Signs Temp Pulse Resp BP Pulse Ox 06/26/21 10:00 97.8 F 85 20 112/57 L 96 06/26/21 05:06 98.2 F 71 18 111/60 98 06/26/21 02:00 98.2 F 88 18 109/54 L 99 Anesthesia: General Endotracheal-GETA Mental Status: Awake Pain Control: Satisfactory Nausea/Vomiting: None Hydration: Adequate Anesthesia-Related Issues: No Anes. Related Issues
--- NOTE | 2021-06-26 17:04 | P.CONIM_ITS ---
History of Present Illness Data of Consult Service Date: 06/26/21 Primary Care Provider: Unknown Physician HPI Reason for consult: Medical management A 61 years old lady with PMH of CAD, depression, smoking who presents to the hospital with leak claudication for an elective right femoral popliteal bypass surgery. Patient had a surgery done and was monitored in the ICU the night before. This morning she is up into her room and she reports feeling much better with decreased pain but still having difficulties in her lower extremity. Next Lyme denies any chest pain, shortness of breath, palpitation, nausea or vomiting. Hospitalist team was asked to follow the patient for her medical problems. Review of Systems Review of Systems: No fever, chills or weakness No chest pain, palpitation No shortness of breath or coughing No abdominal pain, nausea or vomiting No urinary symptoms Pain in her right lower extremity PMFSH Medical History Asthma Atherosclerotic cardiovascular disease Claudication Mood disorder PAD (peripheral artery disease) Smoker Substance dependence Family History Father Unknown family medical history Mother Unknown family medical history Surgical History Hx of section No pertinent past surgical history Social History Household Members: Family Are you a primary lawn care worker to a significant other at home: No Do you presently have visiting nurse or other home services: No Patient Tobacco Use Status: Current everyday Tobacco user Tobacco use type: Cigarette Cigarette Packs Per Day: 0.35 Cigarettes Per Day: 7.0 Years Smoked: 38 Second Hand Smoke Exposure: Yes service: No Current occupational status: unemployed Meds Allergies Allergy/AdvReac Type Severity Reaction Status Date / Time aspirin [ASPIRIN] Allergy Unknown Gastrointestinal Verified 06/22/21 12:15 Upset Active Medications: Current Medications Generic Name Dose Route Start Last Admin Trade Name Freq PRN Reason Stop Dose Admin Acetaminophen 650 mg 06/25/21 10:46 06/26/21 12:37 Acetaminophen 325 Mg Tablet PO 650 mg Q6H PRN Administration Pain, Mild (Pain Scale 1-3) Atorvastatin Calcium 20 mg 06/26/21 21:00 Atorvastatin Calcium 20 Mg Tablet PO BEDTIME [facility] Cyclobenzaprine HCl 10 mg 06/25/21 15:00 06/26/21 14:14 Cyclobenzaprine Hcl 10 Mg Tablet PO 10 mg TID [facility] Administration Heparin Sodium (Porcine) 5,000 unit 06/26/21 09:15 06/26/21 17:03 Heparin Sodium,Porcine 5,000 Unit/Ml Vial SUBCUT 5,000 unit Q8H [facility] Administration Lactated Ringer's 1,000 mls @ 100 mls/hr 06/25/21 14:45 06/26/21 09:28 Lr IVCONT 100 mls/hr .Q10H [facility] Infusion Mirtazapine 7.5 mg 06/25/21 21:00 06/25/21 20:54 Mirtazapine 7.5 Mg Tablet PO 7.5 mg BEDTIME [facility] Administration Morphine Sulfate 2 mg 06/25/21 10:46 06/25/21 23:36 Morphine Sulfate 2 Mg/Ml Cartridge IVPUSH 2 mg Q4H PRN Administration Pain, Severe (Pain Scale 7-10) Protocol Oxycodone HCl 5 mg 06/25/21 10:46 06/26/21 14:14 Oxycodone Hcl Immed Release 5 Mg Tablet PO 5 mg Q4H PRN Administration Pain, Moderate (Pain Scale 4-6 Sodium Chloride 3 ml 06/25/21 16:00 06/26/21 17:03 0.9 % Sodium Chloride Flush 3 Ml Syringe IVFLUSH Not Given QSHIFT [facility] Home Medications Medication Instructions Recorded Confirmed Last Taken Type atorvastatin 20 mg tablet 20 mg PO DAILY 05/03/21 06/22/21 Unknown History blood pressure monitor (Blood #1 ea 05/03/21 06/21/21 Unknown History Pressure Kit) cyclobenzaprine 10 mg tablet 10 mg PO TID 05/03/21 06/22/21 Unknown History inhalational spacing device #1 ea 05/03/21 06/21/21 Unknown History (Aerochamber Mini) mirtazapine 7.5 mg tablet 7.5 mg PO BEDTIME 05/03/21 06/22/21 Unknown History nabumetone 750 mg tablet 750 mg PO BID 05/03/21 06/22/21 Unknown History Physical Exam Vital Signs and Narrative: Vital Signs: Last Vital Signs Temp 98.8 F 06/26/21 15:28 Pulse 71 06/26/21 15:28 Resp 18 06/26/21 15:28 BP 175/65 H 06/26/21 15:28 Pulse Ox 98 06/26/21 15:28 Body Mass Index 27.9 Const: Other: Constitutional : Alert, oriented, not in distress Neck : Normal inspection, Supple Cardiovascular : RRR, S1 S2, no lower extremity edema Respiratory : Good bilateral air entry, no crackles, wheezes or rhonchi Gastrointestinal: soft, lax, Normal bowel sounds, Non tender Skin : Warm, Dry, right lower extremity mildly warm, no erythema or bleeding noticed. Neurological : Alert & oriented x3, No focal deficit Results Labs CBC and Chem 7: 06/26/21 06:12 06/26/21 06:12 Labs: Laboratory Results - last 24 hr 06/26/21 06/26/21 06/26/21 06:12 06:12 10:34 MCV 86.4 MCH 28.0 MCHC 32.4 RDW 13.9 Plt Count 170 MPV 12.1 Immature Gran % (Auto) 0.5 H Neut % (Auto) 71.7 Lymph % (Auto) 18.6 L Boyd % (Auto) 9.1 Eos % (Auto) 0.0 Baso % (Auto) 0.1 Lymph # (Auto) 2.0 Boyd # (Auto) 1.0 Eos # (Auto) 0.0 Baso # (Auto) 0.0 Abs Immat Gran (auto) 0.05 H Absolute Neuts (auto) 7.6 Absolute Nucleated RBC 0.000 Nucleated RBC % (auto) 0.0 Anion Gap 11 L Estim Creat Clear Calc 92.1 Estimated GFR > 60 POC Glucose 149 H Random Glucose 138 H Calcium 8.7 D Assessment and Plan (1) Mood disorder: Status: Acute (2) PAD (peripheral artery disease): Status: Acute A 61 years old lady with PMH of CAD, depression, smoking who presents to the hospital with leak claudication for an elective right femoral popliteal bypass surgery. Right lower extremity PAD Postop day 1 Vascular surgery following HLD continue atorvastatin Mood Disorder continue mirtazapine DVT PPX Heparin
[2021-06-26] MEDS: Lactated Ringers 1,000 ML 100 ML IVCONT (18:00)
[2021-06-26] MEDS: Mirtazapine 7.5 MG TABLET PO (20:09)
[2021-06-26] MEDS: Atorvastatin Calcium 20 MG TABLET PO (20:09)
[2021-06-27] MEDS: Heparin Sodium,Porcine 5,000 UNIT/ML VIAL 5000 UNIT SUBCUT ×3 (01:06→17:08)
[2021-06-27] MEDS: Morphine Sulfate 2 MG/ML CARTRIDGE IVPUSH ×2 (01:10→12:03)
[2021-06-27 03:23] VITALS: BP 149/80; PULSE 80; RESP 18; TEMP 36.3; O2SAT 98
[2021-06-27] MEDS: Lactated Ringers 1,000 ML 100 ML IVCONT (03:56)
[2021-06-27 06:00] VITALS: BMI 27.8
[2021-06-27 06:44] LABS: MANUAL DIFF FLAG NO
[2021-06-27 06:53] LABS: Basophils Percent Auto 0.2 % (0-2); Eosinophils Percent Auto 0.3 % (0-4); Hematocrit 34.6 % (37-47); Hemoglobin 11.1 g/dl (12.0-16.0); Imm Gran Abs Auto 0.05 X10*3/uL (0.00-0.03); Imm Gran Pct Auto 0.6 % (0.0-0.4); Lymphocytes Absolute Auto 3.5 X10*3/uL (1.2-4.9); Lymphocytes Percent Auto 39.4 % (20-40); Mean Corpuscular HGB Conc 32.1 g/dl (31.0-35.0); Mean Corpuscular Volume 87.2 fL (80-98); Mean Platelet Volume 11.9 fL (9.4-12.3); Monocytes Absolute Auto 0.7 X10*3/uL (0.1-1.2); Monocytes Percent Auto 7.4 % (2-11); Neutrophils Absolute Auto 4.6 X10*3/uL (2.0-8.3); Neutrophils Percent Auto 52.1 % (45-73); Platelet Count 180 X10*3/uL (160-400); Red Blood Count 3.97 X10*6/uL (4.20-5.50); Red Cell Distribution Width 14.1 % (11.0-16.0); White Blood Count 8.9 X10*3/uL (4.8-10.8)
[2021-06-27 07:28] VITALS: BP 131/69; PULSE 97; RESP 17; TEMP 36.4; O2SAT 98
[2021-06-27] MEDS: oxyCODONE HCl Immed Release 5 MG TABLET PO (08:31)
[2021-06-27] MEDS: Cyclobenzaprine HCl 10 MG TABLET PO ×3 (08:31→20:53)
[2021-06-27] MEDS: 0.9 % Sodium Chloride Flush 3 ML SYRINGE IVFLUSH ×2 (08:32→17:07)
[2021-06-27 10:25] LABS: Glucose, Whole Blood 93 mg/dL (60-115)
--- NOTE | 2021-06-27 11:27 | HO.VASCPN ---
Subjective Subjective Date of Service: 06/27/21 Patient reports: no new complaints, feels better and pain is less Interval history: Patient is postop day 2 status post fem-pop bypass. She is doing extremely well. No interval issues. Pain appears to be well controlled. She is up in a chair this morning. She is tolerating regular diet. Physical Exam Vital Signs: Vital Signs: Last Vital Signs Temp 97.6 F 06/27/21 07:28 Pulse 97 06/27/21 07:28 Resp 17 06/27/21 07:28 BP 131/69 06/27/21 07:28 Pulse Ox 98 06/27/21 07:28 Body Mass Index 27.8 Const: General: cooperative, healthy appearing and comfortable Orientation/consciousness: oriented to person, oriented to place and oriented to time HENMT: Head: Yes normal to inspection Neck: Neck: Yes normal visual inspection Carotids: no bruits Chest: Chest palpation & inspection: normal inspection of the chest Resp: Effort & Inspection: normal respiratory effort and able to speak in complete sentences Auscultation: clear to auscultation bilaterally, no crackles, no rales, no rhonchi and no wheezes Cardio: Rate: regular rate Rhythm: regular rhythm Heart sounds: S1 normal heart sound present and S2 normal heart sound present Bruits: no carotid bruits Peripheral pulses: dorsalis pedis present on the right (Palpable right DP pulse) GI: Inspection: Yes normal to inspection Skin: Wounds: no wounds Hair: normal Neuro: General: oriented to person, oriented to place and oriented to time Cranial nerves: Yes CN's II-XII intact bilaterally and Yes Normal hearing present Cognition (Neuro): normal cognition Motor exam (neuro): 5/5 motor strength present throughout Extrem: Other: venous exam: No significant superficial varicosities or spider telangiectasias, minimal edema General: No clubbing, No cyanosis and No edema Psych: Appearance: grossly normal Mental Status: mental status grossly normal Speech and movement: Normal speech and movement present Progress Note: A&P Assessment and plan (1) PAD (peripheral artery disease): Status: Acute Assessment and Plan: Patient is doing extremely well status post fem-pop bypass. We will start physical therapy. Should she tolerate this would anticipate discharge as early as tomorrow. Thank you for the hospitalist team for helping in her care. Fall Risk Details Current Medications: Current Medications Generic Name Dose Route Start Last Admin Trade Name Freq PRN Reason Stop Dose Admin Acetaminophen 650 mg 06/25/21 10:46 06/26/21 12:37 Acetaminophen 325 Mg Tablet PO 650 mg Q6H PRN Administration Pain, Mild (Pain Scale 1-3) Atorvastatin Calcium 20 mg 06/26/21 21:00 06/26/21 20:09 Atorvastatin Calcium 20 Mg Tablet PO 20 mg BEDTIME [facility] Administration Cyclobenzaprine HCl 10 mg 06/25/21 15:00 06/27/21 08:31 Cyclobenzaprine Hcl 10 Mg Tablet PO 10 mg TID [facility] Administration Heparin Sodium (Porcine) 5,000 unit 06/26/21 09:15 06/27/21 08:31 Heparin Sodium,Porcine 5,000 Unit/Ml Vial SUBCUT 5,000 unit Q8H [facility] Administration Lactated Ringer's 1,000 mls @ 100 mls/hr 06/25/21 14:45 06/27/21 03:56 Lr IVCONT 100 mls/hr .Q10H [facility] Administration Mirtazapine 7.5 mg 06/25/21 21:00 06/26/21 20:09 Mirtazapine 7.5 Mg Tablet PO 7.5 mg BEDTIME [facility] Administration Morphine Sulfate 2 mg 06/25/21 10:46 06/27/21 01:10 Morphine Sulfate 2 Mg/Ml Cartridge IVPUSH 2 mg Q4H PRN Administration Pain, Severe (Pain Scale 7-10) Protocol Oxycodone HCl 5 mg 06/25/21 10:46 06/27/21 08:31 Oxycodone Hcl Immed Release 5 Mg Tablet PO 5 mg Q4H PRN Administration Pain, Moderate (Pain Scale 4-6 Sodium Chloride 3 ml 06/25/21 16:00 06/27/21 08:32 0.9 % Sodium Chloride Flush 3 Ml Syringe IVFLUSH 3 ml QSHIFT [facility] Administration Time Spent With Patient Time: Total time spent is greater than 50% in coordination of care (as documented) at patient's floor/unit and/or counseling patient: Time with patient: 15 - 24 minutes Procedures Date of Service Date of Service: 06/27/21 Quality Stroke Does the patient have a stroke diagnosis?: No VTE Prior VTE?: No VTE Risk Level:: Surgical - moderate VTE Device Contraindication: N/A - Device Ordered VTE Drug Contraindication: N/A - Med Ordered
[2021-06-27 11:46] LABS: Glucose, Whole Blood 86 mg/dL (60-115)
[2021-06-27 11:47] VITALS: BP 132/71; PULSE 95; RESP 18; TEMP 36.8; O2SAT 96
--- NOTE | 2021-06-27 12:52 | P.PNIM_ITS ---
Subjective Subjective Date of Service: 06/27/21 Interval History: the patient was seen and evaluated this morning Sitting in her chair, feels better than before as pain is better controlled Was able to ambulate this morning Denies any fever, chills or shortness of breath No reported other overnight events. Review of Systems No fever, chills or weakness No chest pain, palpitation No shortness of breath or coughing No abdominal pain, nausea or vomiting No urinary symptoms Pain in her right lower extremity Physical Exam Vital Signs: Vital Signs: Last Vital Signs Temp 98.2 F 06/27/21 11:47 Pulse 95 06/27/21 11:47 Resp 18 06/27/21 11:47 BP 132/71 06/27/21 11:47 Pulse Ox 96 06/27/21 11:47 Body Mass Index 27.8 Const: Other: Constitutional : Alert, oriented, not in distress Neck : Normal inspection, Supple Cardiovascular : RRR, S1 S2, no lower extremity edema Respiratory : Good bilateral air entry, no crackles, wheezes or rhonchi Gastrointestinal: soft, lax, Normal bowel sounds, Non tender Skin : Warm, Dry, right lower extremity mildly warm, no erythema or bleeding noticed. Neurological : Alert & oriented x3, No focal deficit Objective Data Active Medications Acetaminophen (Acetaminophen 325 Mg Tablet) 650 mg PO Q6H PRN PRN Reason: Pain, Mild (Pain Scale 1-3) Last Admin: 06/26/21 12:37 Dose: 650 mg Documented by: DESIREE Atorvastatin Calcium (Atorvastatin Calcium 20 Mg Tablet) 20 mg PO BEDTIME [facility] Last Admin: 06/26/21 20:09 Dose: 20 mg Documented by: ZOE Cyclobenzaprine HCl (Cyclobenzaprine Hcl 10 Mg Tablet) 10 mg PO TID [facility] Last Admin: 06/27/21 08:31 Dose: 10 mg Documented by: URIEL Heparin Sodium (Porcine) (Heparin Sodium,Porcine 5,000 Unit/Ml Vial) 5,000 unit SUBCUT Q8H [facility] Last Admin: 06/27/21 08:31 Dose: 5,000 unit Documented by: URIEL Mirtazapine (Mirtazapine 7.5 Mg Tablet) 7.5 mg PO BEDTIME [facility] Last Admin: 06/26/21 20:09 Dose: 7.5 mg Documented by: ZOE Morphine Sulfate (Morphine Sulfate 2 Mg/Ml Cartridge) 2 mg IVPUSH Q4H PRN; Protocol PRN Reason: Pain, Severe (Pain Scale 7-10) Last Admin: 06/27/21 12:03 Dose: 2 mg Documented by: URIEL Oxycodone HCl (Oxycodone Hcl Immed Release 5 Mg Tablet) 5 mg PO Q4H PRN PRN Reason: Pain, Moderate (Pain Scale 4-6 Last Admin: 06/27/21 08:31 Dose: 5 mg Documented by: URIEL Sodium Chloride (0.9 % Sodium Chloride Flush 3 Ml Syringe) 3 ml IVFLUSH QSHIFT [facility] Last Admin: 06/27/21 08:32 Dose: 3 ml Documented by: URIEL Labs CBC & Chem 7: 06/27/21 06:22 06/26/21 06:12 Labs: Laboratory Results - last 24 hr 06/27/21 06/27/21 06/27/21 06:22 10:20 11:43 MCV 87.2 MCH 28.0 MCHC 32.1 RDW 14.1 Plt Count 180 MPV 11.9 Immature Gran % (Auto) 0.6 H Neut % (Auto) 52.1 Lymph % (Auto) 39.4 [place] % (Auto) 7.4 Eos % (Auto) 0.3 Baso % (Auto) 0.2 Lymph # (Auto) 3.5 [place] # (Auto) 0.7 Eos # (Auto) 0.0 Baso # (Auto) 0.0 Abs Immat Gran (auto) 0.05 H Absolute Neuts (auto) 4.6 Absolute Nucleated RBC 0.000 Nucleated RBC % (auto) 0.0 POC Glucose 93 86 Assessment and Plan (1) PAD (peripheral artery disease): Status: Acute Assessment and Plan: A 61 years old lady with PMH of CAD, depression, smoking who presents to the hospital with leak claudication for an elective right femoral popliteal bypass surgery. Right lower extremity PAD Postop day 2 Vascular surgery following Physical therapy evaluation HLD continue atorvastatin Mood Disorder continue mirtazapine DVT PPX Heparin Quality Stroke Does the patient have a stroke diagnosis?: No VTE Prior VTE?: No VTE Risk Level:: Surgical - moderate VTE Device Contraindication: N/A - Device Ordered VTE Drug Contraindication: N/A - Med Ordered
[2021-06-27 13:59] VITALS: BP 132/71; PULSE 95; O2SAT 96
[2021-06-27 14:56] VITALS: BP 123/71; PULSE 93; RESP 20; TEMP 36.7; O2SAT 95
--- NOTE | 2021-06-27 16:06 | MHC.CM.PN ---
Female S/P FEM-POP DP is home with Family assist and transport. CM will follow.
[2021-06-27 16:28] LABS: Glucose, Whole Blood 92 mg/dL (60-115)
--- NOTE | 2021-06-27 17:40 | PC.NURSE ---
left foot cool to touch, very faint pedal pulse . Dr Varela service was called , waiting for the call back
--- NOTE | 2021-06-27 17:52 | PC.NURSE ---
This RN spoke with Dr Varela regarding left and right lower extremity perfusion. The whole right LE is warm to touch and has positive pulses. Made DR Varela aware that left foot is cool to touch and there is a faint pedal pulse via dopler .
[2021-06-27 18:00] VITALS: BP 131/78; PULSE 101; RESP 20; TEMP 36.4; O2SAT 99
[2021-06-27 19:54] LABS: Glucose, Whole Blood 133 mg/dL (60-115)
[2021-06-27] MEDS: Mirtazapine 7.5 MG TABLET PO (20:53)
[2021-06-27] MEDS: Acetaminophen 325 MG TABLET 650 MG PO (20:53)
[2021-06-27] MEDS: Atorvastatin Calcium 20 MG TABLET PO (20:53)
[2021-06-28 01:37] VITALS: BP 124/68; PULSE 98; RESP 17; TEMP 36.6; O2SAT 98
[2021-06-28] MEDS: Heparin Sodium,Porcine 5,000 UNIT/ML VIAL 5000 UNIT SUBCUT ×2 (01:41→10:00)
[2021-06-28] MEDS: 0.9 % Sodium Chloride Flush 3 ML SYRINGE IVFLUSH ×2 (01:41→09:58)
[2021-06-28] MEDS: oxyCODONE HCl Immed Release 5 MG TABLET PO (04:31)
[2021-06-28 06:00] VITALS: BP 95/61; PULSE 78; RESP 16; TEMP 36.7; O2SAT 96
--- NOTE | 2021-06-28 08:25 | MHC.CM.PN ---
Per Conversation with MD, Patient will be medically cleared for dc to home today, with services. A referral has been made to [facility], who has been made aware of today's dc.
[2021-06-28 08:26] LABS: Glucose, Whole Blood 110 mg/dL (60-115)
--- NOTE | 2021-06-28 09:30 | PM.DS ---
DS: Providers Provider Date of Service: 06/28/21 Date of admission: 06/25/21 06:20 Primary care physician: Unknown Physician Consults: 06/26/21 08:17 Consult to Hospitalist Routine Consulting Provider: Hospitalist Reason For Exam: med management DS: Diagnosis Discharge Diagnosis (1) PAD (peripheral artery disease): Status: Acute DS: Summary Hospital Course Hospital Course: Patient on FridayJune 25 underwent right lower extremity if femoral to popliteal bypass with prosthetic. Postoperatively she was observed in our ICU and subsequently transferred to her intermediate care unit. She has progressed quite well. She is tolerating a diet. She was ambulating with physical therapy. She is stable for discharge. She will have outpatient visiting nurses and physical therapy. She can see me in 2 weeks time for staple removal. Time spent discussing smoking cessation with patient: 3 to 10 minutes Time Spent with Patient Time attestation: Total time spent providing and/or coordinating discharge services: Discharge coordination time: Less than 30 minutes Quality: Stroke Does the patient have a stroke diagnosis?: No Physical Exam Vital Signs: Vital Signs: Last Vital Signs Temp 98.0 F 06/28/21 06:00 Pulse 78 06/28/21 06:00 Resp 16 06/28/21 06:00 BP 95/61 06/28/21 06:00 Pulse Ox 96 06/28/21 06:00 Body Mass Index 27.8 Const: General: cooperative, healthy appearing and no acute distress Orientation/consciousness: oriented to person, oriented to place and oriented to time HENMT: Head: Yes normal to inspection Neck: Carotids: no bruits Chest: Chest palpation & inspection: normal inspection of the chest Resp: Effort & Inspection: normal respiratory effort and able to speak in complete sentences Auscultation: clear to auscultation bilaterally Cardio: Rate: regular rate Heart sounds: S1 normal heart sound present and S2 normal heart sound present GI: Inspection: Yes normal to inspection Skin: Other: Incision is healing well General skin exam: no rashes or lesions noted Wounds: no wounds Neuro: General: oriented to person, oriented to place, oriented to time and CN's II-XI intact bilaterally Extrem: General: Yes normal to inspection, Yes full ROM and Yes no clubbing, cyanosis or edema Psych: Appearance: grossly normal and well kempt Speech and movement: Normal speech and movement present Affect: normal affect DS: Data Data Completed and Pending Completed studies during hospitalization [Text1]: Pending at discharge 06/25/21 09:30 Surgical [PTH] Routine Labs on day of discharge: Laboratory Results - last 24 hr 06/27/21 06/27/21 06/27/21 10:20 11:43 16:15 POC Glucose 93 86 92 06/27/21 06/28/21 19:43 08:23 POC Glucose 133 H 110 Discharge Plan Discharge Patient Disposition: Home Health Service Discharge Diagnosis: Peripheral vascular disease Referrals: Daniel AJ [Outside] - 1 Week Physician,Unknown [Primary Care Provider] - 1 Week Discharge Medications: New oxycodone-acetaminophen [Percocet] 5-325 mg tablet 1 tab PO Q8H PRN (Reason: pain) Qty: 20 RF: 0 Continued (DME) Aerochamber Mini Spacer See Rx Instructions .ROUTE .MEDSUPPLY Qty: 1 RF: 0 atorvastatin 20 mg tablet 20 mg PO DAILY RF: 0 (DME) blood pressure monitor [Blood Pressure Kit] Kit See Rx Instructions .ROUTE .MEDSUPPLY Qty: 1 RF: 0 cyclobenzaprine 10 mg tablet 10 mg PO TID RF: 0 mirtazapine 7.5 mg tablet 7.5 mg PO BEDTIME RF: 0 nabumetone 750 mg tablet 750 mg PO BID RF: 0 Discharge Orders: Discharge Order (Routine); Ordered 06/28/21 Ordered By: Ernesto Varela Diet: advance to usual diet Activity on Discharge: As tolerated Stand Alone Forms: Patient Portal Discharge page Activity Restrictions/Additional Instructions: Take dressing down and may shower starting tomorrow Take it easy today and you may ambulate around the house. Within 24 hours you can resume normal activity You may climb a flight of stairs as tolerated Do not lift anything heavier than a gallon of milk for [address] Varela in follow-up in approximately 2 weeks time for suture and staple removal You should already have an appointment if not please call my office at [phone] Please see above for any change in medications If you notice excessive bleeding please immediately call my office or return to the emergency room. Care Plan Goals: Ambulate better Health Concerns: Peripheral vascular disease Plan of Treatment: Postop. Patient will require surveillance follow-up Assessment: Peripheral vascular disease
[2021-06-28] MEDS: Cyclobenzaprine HCl 10 MG TABLET PO (10:00)
--- NOTE | 2021-06-28 10:09 | HO.PM.IMPN ---
Subjective Subjective Date of Service: 06/28/21 Interval History: pain well-controlled no dyspnea Review of Systems Review of Systems: Yes all other systems are reviewed and are negative Physical Exam Vital Signs: Vital Signs: Last Vital Signs Temp 98.0 F 06/28/21 06:00 Pulse 78 06/28/21 06:00 Resp 16 06/28/21 06:00 BP 95/61 06/28/21 06:00 Pulse Ox 96 06/28/21 06:00 Body Mass Index 27.8 Gen: in no acute distress HEENT: sclera anicteric, moist mucus membranes Neck: supple Lungs: clear to auscultation bilaterally Heart: regular rate and rhythm, no murmurs Abd: soft, non-tender, non-distended Ext: no edema Skin: warm/well-perfused, incision well-healed Neuro: alert and oriented x3, no focal findings Psych: appropriate affect Objective Data Active Medications Acetaminophen (Acetaminophen 325 Mg Tablet) 650 mg PO Q6H PRN PRN Reason: Pain, Mild (Pain Scale 1-3) Last Admin: 06/27/21 20:53 Dose: 650 mg Documented by: JUAN ANTONIO Atorvastatin Calcium (Atorvastatin Calcium 20 Mg Tablet) 20 mg PO BEDTIME [facility] Last Admin: 06/27/21 20:53 Dose: 20 mg Documented by: JUAN ANTONIO Cyclobenzaprine HCl (Cyclobenzaprine Hcl 10 Mg Tablet) 10 mg PO TID [facility] Last Admin: 06/28/21 10:00 Dose: 10 mg Documented by: ARTI Heparin Sodium (Porcine) (Heparin Sodium,Porcine 5,000 Unit/Ml Vial) 5,000 unit SUBCUT Q8H [facility] Last Admin: 06/28/21 10:00 Dose: 5,000 unit Documented by: ARTI Mirtazapine (Mirtazapine 7.5 Mg Tablet) 7.5 mg PO BEDTIME [facility] Last Admin: 06/27/21 20:53 Dose: 7.5 mg Documented by: JUAN ANTONIO Morphine Sulfate (Morphine Sulfate 2 Mg/Ml Cartridge) 2 mg IVPUSH Q4H PRN; Protocol PRN Reason: Pain, Severe (Pain Scale 7-10) Last Admin: 06/27/21 12:03 Dose: 2 mg Documented by: URIEL Oxycodone HCl (Oxycodone Hcl Immed Release 5 Mg Tablet) 5 mg PO Q4H PRN PRN Reason: Pain, Moderate (Pain Scale 4-6 Last Admin: 06/28/21 04:31 Dose: 5 mg Documented by: FARAZ Sodium Chloride (0.9 % Sodium Chloride Flush 3 Ml Syringe) 3 ml IVFLUSH QSHIFT [facility] Last Admin: 06/28/21 09:58 Dose: 3 ml Documented by: ARTI Labs CBC & Chem 7: 06/27/21 06:22 06/26/21 06:12 Labs: Laboratory Results - last 24 hr 06/27/21 06/27/21 06/27/21 10:20 11:43 16:15 POC Glucose 93 86 92 06/27/21 06/28/21 19:43 08:23 POC Glucose 133 H 110 Assessment and Plan (1) PAD (peripheral artery disease): Status: Acute Assessment and Plan: hospital d#4 61yo F with CAD, depression, tobacco abuse, PAD POD #3 R fem/pop bypass # PAD # CAD - continue statin, postop mgmt per Vascular Surgery # depression - mirtazapine # VTE ppx - [facility] Quality Stroke Does the patient have a stroke diagnosis?: No VTE Prior VTE?: No VTE Risk Level:: Surgical - moderate VTE Device Contraindication: N/A - Device Ordered VTE Drug Contraindication: N/A - Med Ordered
== END 2021-06-28 10:50 | disposition home health service (06) | DRG 181 ==
LOC: HO.SSSA 09:59 → HO.ICU 13:46 → HO.IMC 17:54
PROVIDERS: Internal Medicine Pulmonary Disease; Nurse Practitioner; Admitting Provider Surgery Vascular Surgery; PCP Internal Medicine Geriatric Medicine; Visit Provider Surgery Vascular Surgery
PROC: 041K0JL Bypass Right Femoral Artery to Popliteal Artery with Synthetic Substitute, Open Approach (ICD-10-PCS; principal; 2021-06-25 07:30)
DX: I70.221 Atherosclerosis of native arteries of extremities with rest pain, right leg (principal); E78.5 Hyperlipidemia, unspecified; I25.10 Atherosclerotic heart disease of native coronary artery without angina pectoris; F17.210 Nicotine dependence, cigarettes, uncomplicated; F32.9 Major depressive disorder, single episode, unspecified; Z20.822 Contact with and (suspected) exposure to COVID-19; Z71.6 Tobacco abuse counseling; Z88.6 Allergy status to analgesic agent; Z79.899 Other long term (current) drug therapy
CPT/HCPCS: 36415; 80048; 82947; 85025; 85027; 85610; 85730; 86850; 86900; 86901; 87635; 88304; 88311; 97161; C1768; J0690; J1100; J1170; J2250; J2270; J2370; J2405; J3010

== ENCOUNTER → 2021-07-10 15:24 | Outpatient (BNVA) | payer MEDICAID, SELFPAY | PROVIDERS: PCP Internal Medicine Geriatric Medicine; Visit Provider Surgery Vascular Surgery | DX: I73.9 Peripheral vascular disease, unspecified (principal) | CPT/HCPCS: 99212 ==

== ENCOUNTER → 2021-08-07 10:54 | Outpatient (BNVA) | payer MEDICAID, SELFPAY | PROVIDERS: PCP Internal Medicine Geriatric Medicine; Visit Provider Surgery Vascular Surgery | DX: I73.9 Peripheral vascular disease, unspecified (principal); M79.662 Pain in left lower leg; I25.10 Atherosclerotic heart disease of native coronary artery without angina pectoris; F17.210 Nicotine dependence, cigarettes, uncomplicated; Z88.6 Allergy status to analgesic agent | CPT/HCPCS: 99212 ==

== ENCOUNTER 2022-01-09 14:07 | Outpatient (REF) | payer MEDICAID, SELFPAY ==
--- NOTE | ~2022-01-09 | US_ITS ---
EXAMINATION: NONINVASIVE ASSESSMENT OF THE ARTERIES OF BOTH LOWER EXTREMITIES WITH PVR EXAM AND BILATERAL LOWER EXTREMITY DUPLEX CLINICAL INFORMATION: Peripheral vascular disease. Right femoral-popliteal bypass. TECHNIQUE: Ankle pulse volume recordings, ankle pressure measurements and ankle brachial indices were obtained of the lower extremity arterial system bilaterally. Additionally, duplex Doppler techniques were used with wave form analysis and measurement of velocities in the common femoral, profunda femoral, superficial femoral, popliteal and tibial arteries. The study was performed only at rest. COMPARISON: 05/08/2021 FINDINGS: ANKLE-BRACHIAL INDEX: Right: 1.02 Left: Inaudible PVR WAVEFORM: Right: Moderately dampened, loss of dicrotic notch. Left: Severely dampened DIRECT DUPLEX DOPPLER FINDINGS: RIGHT LEG: Common femoral artery: 125 cm/s, diastolic flow reversal: Yes. Profunda femoris artery: 155 cm/s, diastolic flow reversal: No. Superficial femoral artery: Occluded Bypass Graft: Inflow artery: 125 cm/s, multiphasic flow Proximal anastomosis: 115 cm/s, multiphasic flow Proximal graft: 111 cm/s, multiphasic flow Mid graft: 86 cm/s, multiphasic flow Distal graft: 83 cm/s, multiphasic flow Distal anastomosis 76 cm/s, multiphasic flow Popliteal artery (outflow): 63 cm/s, diastolic flow reversal: Yes. Posterior tibial artery: 20 cm/s, diastolic flow reversal: No. Peroneal artery: 33.6cm/s, diastolic flow reversal: No. LEFT LEG: Common femoral artery: 53 cm/s, diastolic flow reversal: No. Profunda femoris artery: 541 cm/s, diastolic flow reversal: No. Superficial femoral artery: Occluded Popliteal artery: 32.9 cm/s, diastolic flow reversal: No. Posterior tibial artery: 16.1 cm/s, diastolic flow reversal: No. Peroneal artery: 23.2 cm/s, diastolic flow reversal: No. US/US arterial duplex LE BI IMPRESSION: RIGHT LEG: ADEOLA 1.02. Duplex ultrasound reveals a widely patent femoropopliteal bypass graft without evidence of stenosis. LEFT LEG: ADEOLA inaudible. Duplex ultrasound reveals occlusion of the left SFA as well as markedly increased velocity within the proximal PFA suggesting high-grade stenosis. ADEOLA Reference: - >0.97-1.25 = normal - no significant arterial disease. - 0.75-0.96 = mild peripheral arterial disease. - 0.5-0.74 = moderate peripheral arterial disease. - <0.50 = severe peripheral arterial disease.
== END 2022-01-09 14:08 | disposition home or self-care (01) ==
LOC: HO.US 14:07
PROVIDERS: Visit Provider Surgery Vascular Surgery
DX: I73.9 Peripheral vascular disease, unspecified (principal)
CPT/HCPCS: 93923; 93925

== ENCOUNTER → 2022-01-21 11:29 | Outpatient (BNVA) | payer MEDICAID, SELFPAY | PROVIDERS: PCP Internal Medicine Geriatric Medicine; Visit Provider Surgery Vascular Surgery | DX: I73.9 Peripheral vascular disease, unspecified (principal) | CPT/HCPCS: 99212 ==

== ENCOUNTER 2022-04-12 11:08 | Emergency (ER) | payer MEDICAID, SELFPAY ==
--- NOTE | ~2022-04-12 | US_ITS ---
EXAMINATION: ARTERIAL ULTRASOUND DUPLEX RIGHT LOWER EXTREMITY CLINICAL INFORMATION: History of femoral occlusion repair. Streaky of right femoropopliteal bypass COMPARISON: Previous right lower extremity arterial ultrasound December 2021 TECHNIQUE: Doppler color and grayscale evaluation of the arteries of the right lower extremity including waveform spectral analysis FINDINGS: The right common femoral artery is patent. Peak systolic velocity 74 cm/s and monophasic waveform. The [place] right SFA popliteal and posterior tibial arteries appear occluded. There is very minimal monophasic flow seen in the peroneal artery. The right femoral to popliteal bypass graft is occluded which is a new finding from December 2021 exam. The right profunda is patent. Peak systolic velocity 132 cm/s and monophasic flow. US/US arterial duplex LE RT IMPRESSION: Occluded right femoropopliteal bypass graft new from December 2021 exam.
[2022-04-12 12:17] VITALS: BP 159/73; PULSE 69; RESP 16; TEMP 36; O2SAT 100; BMI 27.4
--- NOTE | 2022-04-12 12:52 | ED.GENADULT ---
HPI - General Adult General Chief complaint: Extremity Injury, Lower Stated complaint: right leg numbness and pain Time Seen by Provider: 04/12/22 12:52 Source: patient and family (daughter) Mode of arrival: ambulatory Limitations: no limitations History of Present Illness HPI narrative: Patient is a 61 year old female presenting to the emergency department today with right lower leg pain and numbness. Patient states that she has a history of getting a femoral artery bypass on her right leg by Dr. Varela in June of 2021. Patient states that she bumped her lower leg on a cart and now she is having significant pain, numbness, and tingling in the right lower leg. Patient denies any dizziness, lightheadedness, abdominal pain, nausea, vomiting, fever, chills, blurry vision, double vision, loss of vision, chest pain, difficulty breathing, shortness of breath, back pain, night sweats, pain with urination, increased urinary frequency, increased urinary urgency, blood in her urine or stool, syncope or a near syncopal episode, recent trauma or falls, bowel incontinence, bladder incontinence, bowel retention, bladder retention, or any other complaints at this time. Onset (ago): hour(s) Location: right and lower extremity Radiation: non-radiation Severity: moderate Severity scale (1-10): 5 Quality: sharp Pain Consistency: constant Relieving factors: none Exacerbating factors: none Associated symptoms: denies other symptoms Treatments prior to arrival: none Related Data Home Medications Medication Instructions Recorded Confirmed atorvastatin 20 mg tablet 20 mg PO DAILY 05/03/21 06/22/21 blood pressure monitor (Blood #1 ea 05/03/21 06/21/21 Pressure Kit) cyclobenzaprine 10 mg tablet 10 mg PO TID 05/03/21 06/22/21 inhalational spacing device #1 ea 05/03/21 06/21/21 (Aerochamber Mini) mirtazapine 7.5 mg tablet 7.5 mg PO BEDTIME 05/03/21 06/22/21 nabumetone 750 mg tablet 750 mg PO BID 05/03/21 06/22/21 doxycycline monohydrate 100 mg 100 mg PO BID 01/21/22 tablet ibuprofen 800 mg tablet 800 mg PO TID 01/21/22 Previous Rx's Medication Instructions Recorded oxycodone-acetaminophen 5 mg-325 1 tab PO Q8H PRN pain #20 tabs 06/28/21 mg tablet (Percocet) Allergies Allergy/AdvReac Type Severity Reaction Status Date / Time aspirin [ASPIRIN] Allergy Unknown Gastrointestinal Verified 01/21/22 11:31 Upset Review of Systems Constitutional: Constitutional: Reports no additional constitutional complaints, Denies chills, Denies fever(s) and Denies night sweats Eyes: Eyes: Reports no additional eye complaints, Denies blurry vision, Denies change in vision, Denies diplopia, Denies eye discharge, Denies loss of vision and Denies eye pain ENT: Denies dizziness Cardiovascular: Cardiovascular: Reports no additional cardiovascular complaints, Denies chest pain, Denies lightheadedness, Denies Loss of Consciousness and Denies dyspnea Respiratory: Respiratory: Reports no additional respiratory complaints and Denies dyspnea Gastrointestinal: Gastrointestinal: Reports no additional gastrointestinal complaints, Denies abdominal pain, Denies melena, Denies hematochezia, Denies change in bowel habits and Denies change in stool character Genitourinary: Genitourinary: Denies hematuria, Denies urinary frequency, Denies dysuria, Denies urinary incontinence, Denies urinary hesitancy and Denies urinary urgency Musculoskeletal: Musculoskeletal: Reports no additional musculoskeletal complaints, Denies numbness and Denies tingling Comments: right lower leg pain Neurologic: Denies dizziness, Denies loss of vision, Denies numbness and Denies tingling Psychiatric: Psychiatric: Reports no additional psychiatric complaints Endocrine: Endocrine: Reports no additional endocrine complaints Hematologic/Lymphatic: Hematologic/Lymphatic: Reports no additional hematologic/lymphatic complaints Allergic/Immunologic: Allergic/Immunologic: Reports no additional allergic/immunologic complaints [facility] Past Medical History Attestation statement: The following information was validated with the patient. Source: old records reviewed Medical History Asthma Atherosclerotic cardiovascular disease Claudication Mood disorder PAD (peripheral artery disease) Smoker Substance dependence Surgical History Hx of section No pertinent past surgical history S/P femoral-femoral bypass surgery (06/25/21) Family History Family History Father Unknown family medical history Mother Unknown family medical history Social History Social History Household Members: Family Are you a primary medicare sales representative to a significant other at home: No Do you presently have visiting nurse or other home services: No Patient Tobacco Use Status: Current everyday Tobacco user Tobacco use type: Cigarette Cigarette Packs Per Day: 0.35 Cigarettes Per Day: 7.0 Years Smoked: 38 Second Hand Smoke Exposure: Yes Advance Directives: Yes Advance Directives Information Provided: Yes Advance Directives on File: No service: No Current occupational status: unemployed Physical Exam ED Vital Signs: Vital Signs - 24 hr 04/12/22 12:17 04/12/22 15:59 04/12/22 17:15 Temperature 96.8 F 97.2 F 98.4 F Pulse Rate 69 66 80 Respiratory Rate 16 16 16 Blood Pressure 159/73 H 154/81 H 135/92 H Pulse Oximetry 100 100 98 Oxygen Delivery Method Room Air Room Air Room Air BMI result Body Mass Index 26.2 Const General: cooperative, no acute distress, alert and awake Nutritional Appearance: well nourished Orientation/consciousness: patient oriented x3 Limitations: no limitations HENMT Head: Yes normal to inspection and Yes atraumatic Ears: hearing grossly normal bilaterally and external ears normal General nose exam: Normal external nose present, no nasal discharge noted and no epistaxis Face and sinus: Yes normal facial exam, No abrasion and No laceration Mouth: Normal oral and palatal mucosa present, no drooling and no muffled voice Eyes General: appearance normal, both eyes and all related structures Periorbital: periorbital findings normal Eyelids: Yes eyelids normal Conjunctivae: conjunctivae normal Pupils: Equal, round and reactive pupils present EOM: EOMs intact bilaterally Neck Neck: Yes normal visual inspection, Yes full ROM and Yes no lymphadenopathy Chest Chest palpation & inspection: normal inspection of the chest Resp Effort & Inspection: normal respiratory effort and able to speak in complete sentences Auscultation: clear to auscultation bilaterally Cardio Rate: regular rate Rhythm: regular rhythm Peripheral pulses: popliteal pulses not present (right), posterior tibial pulses not present (right) and dorsalis pedis pulses not present (right) GI Inspection: Yes normal to inspection Neuro General: patient oriented x3 and moves all extremities Cranial nerves: Yes Equal, round and reactive pupils present Cognition (Neuro): normal cognition Coordination: [id number] test normal Extrem Other: patient's right lower leg is cold to the touch, no distal pulses can be felt including the popliteal, dorsalis pedis, or posterior tibial Psych Appearance: grossly normal Mental Status: mental status grossly normal Affect: normal affect Attitude: cooperative Thought process: Normal thought process present Thought content: Normal thought content present Insight: Good insight present (Psych) Medical Decision Making MDM Narrative Medical decision making narrative: Patient is a 61 year old female presenting to the emergency department today with right lower leg pain. Patient's physical exam showed a cold to the touch right lower limb with absent pulses as documented previously in this chart. Patient's right lower extremity arterial US showed a complete occlusion of the previously patent bypass and no flow in the distal popliteal or femoral artery. I called and spoke to Dr. Varela, the vascular surgeon certification and selection specialist, who recommended the patient be transferred to [facility] in [place]. However, they did not have a bed for the patient to go to. I spoke to Dr. Wilcox, the vascular surgeon at [place] who agreed to the patient's transfer. Patient is accepted by Dr. Robledo in the Emergency Department. Patient's blood work was unremarkable. I explained my physical exam findings as well as all test results to the patient and the patient's daughter. I answered all questions asked by the patient and the patient's daughter. Patient received a bolus dose of Heparin and a Heparin drip was started. Patient and the patient's daughter verbalized agreement and understanding with this treatment plan and emergent transfer. Differential Diagnosis Differential Diagnosis: ischemic limb Medical Records Medical records reviewed: Yes I reviewed the patient's medical records. Lab Data Lab results reviewed: Yes I reviewed the patient's lab results. Result diagrams: 04/12/22 16:32 04/12/22 16:32 Labs: Lab Results 04/12/22 04/12/22 04/12/22 Range/Units 16:32 16:32 16:32 WBC 7.0 (4.8-10.8) X10*3/uL RBC 4.77 (4.20-5.50) X10*6/uL Hgb 13.4 (12.0-16.0) g/dl Hct 41.2 (37.0-47.0) % MCV 86.4 (80.0-98.0) fL MCH 28.1 (27.0-33.0) pg MCHC 32.5 (31.0-35.0) g/dl RDW 13.8 (11.0-16.0) % Plt Count 233 (160-400) X10*3/uL MPV 10.8 (9.4-12.3) fL Immature Gran % (Auto) 0.1 (0.0-0.4) % Neut % (Auto) 48.8 (45-73) % Lymph % (Auto) 43.5 H (20-40) % [place] % (Auto) 5.9 (2-11) % Eos % (Auto) 1.3 (0-4) % Baso % (Auto) 0.4 (0-2) % Lymph # (Auto) 3.0 (1.2-4.9) X10*3/uL [place] # (Auto) 0.4 (0.1-1.2) X10*3/uL Eos # (Auto) 0.1 (0.0-0.4) X10*3/uL Baso # (Auto) 0.0 (0.0-0.2) X10*3/uL Abs Immat Gran (auto) 0.01 (0.00-0.03) X10*3/uL Absolute Neuts (auto) 3.4 (2.0-8.3) x10*3/uL Absolute Nucleated RBC 0.000 (0.0-0.012) X10*3/uL Nucleated RBC % (auto) 0.0 (0.0-0.2) /100WBC PT 11.6 (10.0-13.1) SEC INR 1.0 (0.9-1.1) APTT 41.9 H (24.1-38.0) SEC Sodium 142 (135-145) mmol/L Potassium 4.3 (3.3-5.1) mmol/L Chloride 107 (96-108) mmol/L Carbon Dioxide 26 (22-29) mmol/L Anion Gap 13 (12-20) BUN 8 L (9-16) mg/dL Creatinine 0.60 (0.5-1.4) mg/dL Estim Creat Clear Calc 89.3 Estimated GFR > 60 Random Glucose 91 (60-115) mg/dL Calcium 9.7 D (8.4-10.2) mg/dL Total Bilirubin 0.3 (0.0-1.0) mg/dL AST 56 H (5-31) U/L ALT 25 (0-31) U/L Alkaline Phosphatase 115 (39-117) U/L Total Protein 7.7 (6.5-8.0) g/dL Albumin 4.6 (3.5-5.0) g/dL Discharge Plan Discharge Clinical Impression: Ischemic leg Patient Disposition: [facility] Prescriptions: No [facility] oxycodone-acetaminophen [Percocet] 5-325 mg tablet 1 tab PO Q8H PRN (Reason: pain) Qty: 20 0RF (DME) Aerochamber Mini Spacer See Rx Instructions .ROUTE .MEDSUPPLY Qty: 1 Rx Instructions: As directed atorvastatin 20 mg tablet 20 mg PO DAILY (DME) blood pressure monitor [Blood Pressure Kit] Kit See Rx Instructions .ROUTE .MEDSUPPLY Qty: 1 Rx Instructions: As directed cyclobenzaprine 10 mg tablet 10 mg PO TID mirtazapine 7.5 mg tablet 7.5 mg PO BEDTIME nabumetone 750 mg tablet 750 mg PO BID doxycycline monohydrate 100 mg tablet 100 mg PO BID ibuprofen 800 mg tablet 800 mg PO TID Print Language: Cambodian
[2022-04-12 15:59] VITALS: BP 154/81; PULSE 66; RESP 16; TEMP 36.2; O2SAT 100
[2022-04-12 16:34] LABS: MANUAL DIFF FLAG NO
[2022-04-12 16:36] LABS: Basophils Percent Auto 0.4 % (0-2); Eosinophils Absolute Auto 0.1 X10*3/uL (0.0-0.4); Eosinophils Percent Auto 1.3 % (0-4); Hematocrit 41.2 % (37.0-47.0); Hemoglobin 13.4 g/dl (12.0-16.0); Imm Gran Abs Auto 0.01 X10*3/uL (0.00-0.03); Imm Gran Pct Auto 0.1 % (0.0-0.4); Lymphocytes Percent Auto 43.5 % (20-40); Mean Corpuscular HGB Conc 32.5 g/dl (31.0-35.0); Mean Corpuscular Hemoglobin 28.1 pg (27.0-33.0); Mean Corpuscular Volume 86.4 fL (80.0-98.0); Mean Platelet Volume 10.8 fL (9.4-12.3); Monocytes Absolute Auto 0.4 X10*3/uL (0.1-1.2); Monocytes Percent Auto 5.9 % (2-11); Neutrophils Absolute Auto 3.4 x10*3/uL (2.0-8.3); Neutrophils Percent Auto 48.8 % (45-73); Platelet Count 233 X10*3/uL (160-400); Red Blood Count 4.77 X10*6/uL (4.20-5.50); Red Cell Distribution Width 13.8 % (11.0-16.0)
[2022-04-12 16:45] LABS: Prothrombin Time 11.6 SEC (10.0-13.1)
[2022-04-12 16:48] LABS: Partial Thromboplastin Time 41.9 SEC (24.1-38.0)
[2022-04-12] MEDS: Heparin Sodium,Porcine 5,000 UNIT/ML VIAL 5400 UNIT IVPUSH (16:50)
[2022-04-12 16:56] VITALS: BMI 26.2
[2022-04-12 16:59] LABS: Alanine Aminotransferase 25 U/L (0-31); Albumin Level 4.6 g/dL (3.5-5.0); Alkaline Phosphatase 115 U/L (39-117); Anion Gap 13 (12-20); Aspartate Amino Transferase 56 U/L (5-31); Bilirubin Total 0.3 mg/dL (0.0-1.0); Blood Urea Nitrogen 8 mg/dL (9-16); Calcium 9.7 mg/dL (8.4-10.2); Carbon Dioxide 26 mmol/L (22-29); Chloride 107 mmol/L (96-108); Creatinine Clr Calc Pharmacy 89.3; Estimated Glomerular Filt Rate > 60; Glucose Random 91 mg/dL (60-115); Potassium 4.3 mmol/L (3.3-5.1); Sodium 142 mmol/L (135-145); Total Protein 7.7 g/dL (6.5-8.0)
[2022-04-12 17:15] VITALS: BP 135/92; PULSE 80; RESP 16; TEMP 36.9; O2SAT 98
[2022-04-12] MEDS: Heparin Sodium,Porcine/1/2NS 25,000 UNIT/250 ML IV.SOLN 9.1 UNIT IVCONT (17:32)
[2022-04-12 18:14] LABS: COVID-19 Test Negative (Negative); IDNOW Serial# 16C4AD1C
--- NOTE | 2022-04-12 18:40 | PC.NURSE ---
RN to RN report given to Angelique SKINNER at [facility] ED. Accepting MD: Garrett. Original plan of care was to transport the patient to [facility] via helicopter with Heparin drip infusing for right femoropopliteal occlusion. However, shortly after booking helicopter transport, receptionist secretary (Lily) and sign builder (Katie Matthews) received call that helicopter broke down and that another helicopter wouldn't be available for a while . Attempted to book ALS transfer, but ALS truck also unavailable for several hours . S EMS Truck with [facility] booked per request by & MONA Montalvo after consulting with vascular specialist (). Instructed by MONA Eugene to stop Heparin infusion drip upon EMS arrival for transfer. Heparin drip was infusing per protocol from 17:32 until 18:28 at 14 units/kg/hr per protocol. Was given Heparin IV push bolus of 5400 units prior to initiating infusion. Spoke with and questioned on whether he (or vascular specialist) wanted an additional Heparin IV push dose to be given upon EMS arrival. stated no, she doesn't need another bolus of Heparin. I spoke with Nichole. sign builder (Katie Matthews) aware of these instructions. Vital signs stable. Discussed plan with patient & family member (daughter). En route to [facility] ED at this time.
== END 2022-04-12 18:30 | disposition short-term general hospital (02) ==
PROVIDERS: Physician Assistant Medical; Emergency Provider Emergency Medicine Emergency Medical Services
DX: T79.6XXA Traumatic ischemia of muscle, initial encounter (principal); M79.604 Pain in right leg; R20.0 Anesthesia of skin; R60.0 Localized edema; F17.210 Nicotine dependence, cigarettes, uncomplicated; Z71.6 Tobacco abuse counseling; Z20.822 Contact with and (suspected) exposure to COVID-19; Z79.899 Other long term (current) drug therapy
CPT/HCPCS: 36415; 80053; 85025; 85610; 85730; 87635; 93926; 96365; 96375; 99285